=== PATIENT | male | born 2000 | race Hispanic/Latino ===

== ENCOUNTER 2019-07-23 09:15 | Observation (INO) | payer OTHER, SELFPAY ==
[2019-07-23] MEDS ORDERED: DICYCLOMINE HCL 10 MG CAP ONE (10:22)
[2019-07-23] MEDS ORDERED: NA CHLORIDE 0.9% 1,000 ML ONE ×2 (10:22→15:24)
[2019-07-23] MEDS ORDERED: ONDANSETRON 4 MG/2 ML VIAL ONE ×3 (10:22→14:26)
[2019-07-23] MEDS ORDERED: FAMOTIDINE 20 MG/2 ML VIAL IV ONE (10:23)
[2019-07-23 10:43] LABS: Basophils % 0.4 % (0-1.3); Lymphocytes % 5.5 % (15.3-44.8); MPV 9.9 fL (7.6-11.3); RBC Red Blood Cell Count 5.26 M/uL (4.33-5.43)
[2019-07-23 11:01] LABS: Albumin 4.3 g/dL (3.4-5.0); Bilirubin Direct 0.2 mg/dL (0-0.2); Bilirubin Total 0.9 mg/dL (0.2-1.0); Potassium 3.7 mmol/L (3.5-5.1); Protein, Total 8.2 g/dL (6.4-8.2)
[2019-07-23] MEDS ORDERED: PROMETHAZINE 25 MG/ML VIAL ONE (11:10)
--- NOTE | 2019-07-23 12:38 | RAD REPORT ---
EXAM DESCRIPTION: CTAbdomen Pelvis W Contrast - 07/23/2019 12:26 pm CLINICAL HISTORY: Abdominal pain. ABD PAIN COMPARISON: <Comparisons> TECHNIQUE: Biphasic CT imaging of the abdomen and pelvis was performed with 100 ml non-ionic IV cont rast. All CT scans are performed using dose optimization technique as appropriate and may include automated exposure control or mA/KV adjustment according to patient size. FINDINGS: The lung bases are clear. The liver, spleen, pancreas, adrenal glands and kidneys are within normal limits. No bowel obstruction, free air or abscess. Trace free fluid is seen in the pelvis. The appendix is no rmal. No evidence of significant lymphadenopathy. No suspicious bony findings. IMPRESSION: No acute intra-abdominal or pelvic finding.
[2019-07-23 12:59] LABS: Platelet Estimate ADEQ; Urine White Blood Cell Casts OK
[2019-07-23 13:00] LABS: Blood Morphology Comment NOT SEEN (NOT SEEN)
--- NOTE | 2019-07-23 14:22 | EDPHYS ---
Physician Documentation [facility] Name: Antony Byrnes Jr Age: 18 yrs Sex: Male : 2000 Arrival Date: 07/23/2019 Time: 09:17 Bed 24 Private MD: ED Physician Phi Zavala HPI: 07/23 10:20 This 18 yrs old Male presents to ER via Wheelchair with complaints of cp Vomiting/Diarrhea. 10:20 The patient presents to the emergency department with nausea, with "dry heaves", cp vomiting, that is continuous, diarrhea, that is continuous, abdominal pain, of the umbilical area. 10:20 Onset: The symptoms/episode began/occurred this morning. cp 10:20 Possible causes: unknown. Associated signs and symptoms: Pertinent positives: abdominal cp pain, diarrhea, vomiting, Pertinent negatives: constipation, dysuria, fever, GI bleeding. Severity of symptoms: in the emergency department the symptoms are unchanged despite home interventions. Historical: - Allergies: 09:23 No Known Allergies; aa5 - PMHx: 09:23 None; aa5 - PSHx: 09:23 WRIST SURGERY; aa5 - Immunization history:: Adult Immunizations up to date. - Social history:: Smoking status: Patient uses tobacco products, denies chronic smoking, but will smoke occasionally, Patient uses street drugs, marijuana. - Ebola Screening: : No symptoms or risks identified at this time. ROS: 10:25 Constitutional: Positive for poor PO intake, Negative for body aches, chills, fever. cp 10:25 Eyes: Negative for injury, pain, redness, and discharge. cp 10:25 ENT: Negative for drainage from ear(s), ear pain, sore throat, difficulty swallowing, difficulty handling secretions. 10:25 Cardiovascular: Negative for chest pain, palpitations. 10:25 Respiratory: Negative for cough, shortness of breath, wheezing. 10:25 Abdomen/GI: Positive for abdominal pain, nausea, vomiting, and diarrhea, anorexia, Negative for constipation, hematemesis, black/tarry stool, rectal bleeding. 10:25 : Negative for urinary symptoms, testicular pain 10:25 Skin: Negative for rash. 10:25 Neuro: Negative for altered mental status, headache, weakness. 10:25 All other systems are negative. Exam: 10:35 Constitutional: The patient appears in no acute distress, alert, awake, non-toxic, well cp developed, well nourished. 10:35 Head/Face: Normocephalic, atraumatic. cp 10:35 Eyes: Periorbital structures: appear normal, Conjunctiva: normal, no exudate, no injection, Sclera: no appreciated abnormality, Lids and lashes: appear normal, bilaterally. 10:35 ENT: External ear(s): are unremarkable, Nose: is normal, Mouth: Lips: moist, Oral mucosa: moist, Posterior pharynx: is normal, airway is patent, no erythema, no exudate. 10:35 Chest/axilla: Inspection: normal, Palpation: is normal, no crepitus, no tenderness. 10:35 Cardiovascular: Rate: normal, Rhythm: regular. 10:35 Respiratory: the patient does not display signs of respiratory distress, Respirations: normal, no use of accessory muscles, no retractions, no splinting, no tachypnea, labored breathing, is not present, Breath sounds: are clear throughout, no decreased breath sounds, no stridor, no wheezing. 10:35 Abdomen/GI: Inspection: abdomen appears normal, Bowel sounds: active, all quadrants, Palpation: soft, in all quadrants, moderate abdominal tenderness, in the umbilical area, rebound tenderness, is not appreciated, involuntary guarding, is not appreciated. Vital Signs: 09:23 BP 121 / 74; Pulse 70; Resp 18 S; Temp 97.9(O); Pulse Ox 100% on R/A; Weight 58.97 kg aa5 (R); Height 5 ft. 8 in. (172.72 cm) (R); Pain 7/10; 11:20 Temp 98.5(O); aa5 11:40 BP 107 / 52; Pulse 73; Resp 18 S; Pulse Ox 100% on R/A; Pain 5/10; aa5 12:59 BP 115 / 73; Pulse 60; Resp 16 S; Temp 99.1(O); Pulse Ox 97% on R/A; aa5 09:23 Body Mass Index 19.77 (58.97 kg, 172.72 cm) aa5 MDM: 10:13 Patient medically screened. cp 14:15 Data reviewed: vital signs, nurses notes, lab test result(s), radiologic studies, CT cp scan. 14:15 Response to treatment: the patient's symptoms have mildly improved after treatment. cp 14:15 ED course: Patient continues to be intolerant of po fluids. 14:16 Physician consultation: Katty Nagel MD was called at 14:17, was contacted at 14:17, cp regarding admission, to the medical/surgical unit. patient's condition, and will see patient in ED. 07/23 10:18 Order name: Basic Metabolic Panel; Complete Time: 11:03 07/23 10:18 Order name: CBC with Diff; Complete Time: 13:02 07/23 13:03 Interpretation: Normal except: WBC 17.8; MCV 91.2; JOVANA% 88.9; LYM% 5.5; NEUT A 15.8. 07/23 10:18 Order name: Creatinine for Radiology; Complete Time: 11:03 07/23 10:18 Order name: Hepatic Function; Complete Time: 11:03 07/23 10:18 Order name: Lipase; Complete Time: 11:03 07/23 13:02 Order name: CBC Smear Scan; Complete Time: 13:02 EDCA 07/23 10:19 Order name: CT Abd/Pelvis - PO and IV Contrast 07/23 14:14 Order name: UDS 07/23 15:23 Order name: CT EDCA 07/23 15:38 Order name: Urine Dipstick--Ancillary (enter results) [facility] 07/23 15:47 Order name: Urine Dipstick-Ancillary [facility] 07/23 10:18 Order name: IV Saline Lock; Complete Time: 10:19 07/23 10:18 Order name: Labs collected and sent; Complete Time: 10:19 07/23 13:32 Order name: PO challenge; Complete Time: 14:13 cp 07/23 15:37 Order name: Urine Dipstick-Ancillary (obtain specimen); Complete Time: 15:37 cp Administered Medications: 10:23 Drug: Zofran 4 mg Route: IVP; Site: right antecubital; aa5 10:30 Follow up: Response: No adverse reaction aa5 10:23 Drug: Pepcid 20 mg Route: IVP; Site: right antecubital; aa5 10:30 Follow up: Response: No adverse reaction aa5 10:23 Drug: NS 0.9% 1000 ml Route: IV; Rate: 1 bolus; Site: right antecubital; aa5 11:08 Follow up: IV Status: Completed infusion; IV Intake: 1000ml aa5 10:29 Drug: Bentyl 20 mg Route: PO; aa5 13:00 Follow up: Response: No adverse reaction iw 10:45 Drug: Zofran 4 mg Route: IVP; Site: right antecubital; aa5 10:50 Follow up: Response: No adverse reaction aa5 11:08 Drug: Phenergan 25 mg Route: IVP; Site: right antecubital; aa5 13:45 Follow up: Response: No adverse reaction; Nausea unchanged iw 14:26 Drug: NS 0.9% 1000 ml Route: IV; Rate: 1 bolus; Site: right antecubital; iw 14:27 Drug: Zofran 4 mg Route: IVP; Site: right antecubital; iw 15:29 Drug: NS 0.9% 1000 ml Route: IV; Rate: 100 ml/hr; Site: right antecubital; iw Disposition: 17:37 Co-signature as Attending Physician, Phi Zavala MD. rn Disposition: 07/23/19 14:20 Hospitalization ordered by Katty Nagel for Observation. Preliminary diagnosis are Nausea and vomiting - intractable, Diarrhea, unspecified. - Bed requested for Telemetry/MedSurg (observation). - Status is Observation. iw - Condition is Stable. - Problem is new. - Symptoms have improved. UTI on Admission? No Signatures: Dispatcher [employer] Capri Silva RN RN Phi Zavala MD MD rn Calderon, Audri, RN RN aa5 Marshall Rojas PA PA cp Herrera, Deanna 3 Corrections: (The following items were deleted from the chart) 12:52 12:36 Constitutional: The patient appears in no acute distress, alert, awake, cp non-diaphoretic, non-toxic, well developed, well nourished, unkempt, cp 12:52 12:36 Head/Face: Normocephalic, atraumatic. cp cp 12:52 12:36 Eyes: Periorbital structures: appear normal, Pupils: equal, round, and reactive cp to light and accomodation, Extraocular movements: intact throughout, Conjunctiva: normal, no exudate, no injection, Sclera: no appreciated abnormality, Lids and lashes: appear normal, bilaterally, cp 12:52 12:36 ENT: External ear(s): are unremarkable, Ear canal(s): are normal, clear, TM's: cp dullness, bilaterally, Nose: is normal, Mouth: Lips: dry, Oral mucosa: dry, Posterior pharynx: Airway: no evidence of obstruction, patent, erythema, is not appreciated, exudate, is not appreciated, Voice: is normal, cp 12:52 12:36 Neck: ROM/movement: is normal, is supple, without pain, no range of motions cp limitations, no meningismus, no nuchal rigidity, cp 12:52 12:36 Chest/axilla: Inspection: normal, Palpation: is normal, no crepitus, no cp tenderness, cp 12:52 12:36 Cardiovascular: Rate: normal, Rhythm: irregularly irregular, Edema: is not cp appreciated, JVD: is not appreciated, cp 12:52 12:36 Respiratory: the patient does not display signs of respiratory distress, cp Respirations: normal, no use of accessory muscles, no retractions, no splinting, no tachypnea, labored breathing, is not present, Breath sounds: are clear throughout, no decreased breath sounds, no stridor, no wheezing, cp 12:52 12:36 Abdomen/GI: Inspection: abdomen appears normal, Bowel sounds: active, all cp quadrants, Palpation: abdomen is soft and non-tender, in all quadrants, cp 12:52 12:36 Back: pain, is absent, ROM is normal, cp cp 12:52 12:36 Musculoskeletal/extremity: Exam is negative for deformity, cp cp 12:52 12:36 Skin: cellulitis, that is moderate, on the left leg, noted multiple open wounds cp left foot. cp 12:52 12:36 Neuro: Orientation: to person, place \\T\\ time. Mentation: is normal, Cerebellar cp function: Romberg testing is negative, normal finger to nose testing, Motor: moves all fours, general weakness without focal deficits, Sensation: no obvious gross deficits, cp 16:12 14:20 Hospitalization Ordered by Katty Nagel MD for Observation. Preliminary diagnosis dh3 is Nausea and vomiting - intractable; Diarrhea, unspecified. Bed requested for Telemetry/MedSurg (observation). Status is Observation. Condition is Stable. Problem is new. Symptoms have improved. UTI on Admission? No. cp 16:38 16:12 07/23/2019 14:20 Hospitalization Ordered by Katty Nagel MD for Observation. iw Preliminary diagnosis is Nausea and vomiting - intractable; Diarrhea, unspecified. Bed requested for Telemetry/MedSurg (observation). Status is Observation. Condition is Stable. Problem is new. Symptoms have improved. UTI on Admission? No. dh3
--- NOTE | 2019-07-23 14:22 | ER ---
Nurse's Notes [facility] Name: Antony Byrnes Jr Age: 18 yrs Sex: Male : 2000 Arrival Date: 07/23/2019 Time: 09:17 Bed 24 Private MD: Diagnosis: Nausea and vomiting-intractable;Diarrhea, unspecified Presentation: 07/23 09:22 Presenting complaint: Patient states: Nausea/vomiting/diarrhea and lower abd pain since aa5 0600 today. Transition of care: patient was not received from another setting of care. Onset of symptoms was July 23, 2019. Risk Assessment: Do you want to hurt yourself or someone else? Patient reports no desire to harm self or others. Initial Sepsis Screen: Does the patient meet any 2 criteria? No. Patient's initial sepsis screen is negative. Does the patient have a suspected source of infection? No. Patient's initial sepsis screen is negative. Care prior to arrival: None. 09:22 Acuity: CORINA 3 aa5 09:22 Method Of Arrival: Wheelchair aa5 Historical: - Allergies: 09:23 No Known Allergies; aa5 - PMHx: 09:23 None; aa5 - PSHx: 09:23 WRIST SURGERY; aa5 - Immunization history:: Adult Immunizations up to date. - Social history:: Smoking status: Patient uses tobacco products, denies chronic smoking, but will smoke occasionally, Patient uses street drugs, marijuana. - Ebola Screening: : No symptoms or risks identified at this time. Screenin:55 Abuse screen: Denies threats or abuse. Nutritional screening: No deficits noted. tw2 Tuberculosis screening: No symptoms or risk factors identified. Fall Risk None identified. Assessment: 10:05 General: Appears uncomfortable, Behavior is calm, cooperative. Pain: Complains of pain aa5 in right lower quadrant and left lower quadrant Pain does not radiate. Pain currently is 7 out of 10 on a pain scale. Quality of pain is described as crampy, sharp, Pain began this morning Is continuous. Neuro: Level of Consciousness is awake, alert, obeys commands, Oriented to person, place, time, situation. Cardiovascular: Heart tones S1 S2 present Rhythm is regular. Respiratory: Airway is patent Respiratory effort is even, unlabored, Respiratory pattern is regular, symmetrical, Breath sounds are clear bilaterally. GI: Abdomen is flat, non-distended, Bowel sounds present X 4 quads. Abd is soft and non tender X 4 quads. Reports diarrhea, nausea, vomiting. : No signs and/or symptoms were reported regarding the genitourinary system. EENT: No signs and/or symptoms were reported regarding the EENT system. Derm: Skin is dry, Skin is normal, Skin temperature is warm. Musculoskeletal: Range of motion: intact in all extremities. 10:23 Reassessment: Patient is alert, oriented x 3, equal unlabored respirations, skin aa5 warm/dry/pink. Pt vomited bile 100cc noted in emesis bag. . 11:08 Reassessment: Patient is alert, oriented x 3, equal unlabored respirations, skin aa5 warm/dry/pink. Pt reports he vomited, bile noted in emesis bag 100cc. . 11:40 Reassessment: Patient is alert, oriented x 3, equal unlabored respirations, skin aa5 warm/dry/pink. Patient states feeling better. Pt reports nausea has improved. . 11:46 Reassessment: Pt attempting to drink CT oral contrast again. . aa5 12:00 Reassessment: Patient is alert, oriented x 3, equal unlabored respirations, skin aa5 warm/dry/pink. Pt unable to drink CT oral contrast, PA was notified. . 13:47 Reassessment: family reports pt vomited once prior to PO challenge, vomited approx 30 iw mL clear liquid, pt now attempted to take one small sip of apple juice. 15:29 Reassessment: pt vomited approx 20 mL green bile. iw Vital Signs: 09:23 BP 121 / 74; Pulse 70; Resp 18 S; Temp 97.9(O); Pulse Ox 100% on R/A; Weight 58.97 kg aa5 (R); Height 5 ft. 8 in. (172.72 cm) (R); Pain 7/10; 11:20 Temp 98.5(O); aa5 11:40 BP 107 / 52; Pulse 73; Resp 18 S; Pulse Ox 100% on R/A; Pain 5/10; aa5 12:59 BP 115 / 73; Pulse 60; Resp 16 S; Temp 99.1(O); Pulse Ox 97% on R/A; aa5 09:23 Body Mass Index 19.77 (58.97 kg, 172.72 cm) aa5 ED Course: 09:17 Patient arrived in ED. mr 09:22 Arm band placed on. aa5 09:23 Triage completed. aa5 10:05 Bed in low position. Call light in reach. Pulse ox on. NIBP on. tw2 10:06 Verito De La Torre RN is Primary Nurse. aa5 10:12 Marshall Rojas PA is PHCP. cp 10:12 Phi Zavala MD is Attending Physician. cp 10:20 Initial lab(s) drawn, by me, sent to lab. Inserted saline lock: 20 gauge in right aa5 antecubital area, using aseptic technique. Blood collected. 13:00 Report given to KAYLA Farooq. aa5 14:20 Katty Nagel MD is Hospitalizing Provider. cp Administered Medications: 10:23 Drug: Zofran 4 mg Route: IVP; Site: right antecubital; aa5 10:30 Follow up: Response: No adverse reaction aa5 10:23 Drug: Pepcid 20 mg Route: IVP; Site: right antecubital; aa5 10:30 Follow up: Response: No adverse reaction aa5 10:23 Drug: NS 0.9% 1000 ml Route: IV; Rate: 1 bolus; Site: right antecubital; aa5 11:08 Follow up: IV Status: Completed infusion; IV Intake: 1000ml aa5 10:29 Drug: Bentyl 20 mg Route: PO; aa5 13:00 Follow up: Response: No adverse reaction iw 10:45 Drug: Zofran 4 mg Route: IVP; Site: right antecubital; aa5 10:50 Follow up: Response: No adverse reaction aa5 11:08 Drug: Phenergan 25 mg Route: IVP; Site: right antecubital; aa5 13:45 Follow up: Response: No adverse reaction; Nausea unchanged iw 14:26 Drug: NS 0.9% 1000 ml Route: IV; Rate: 1 bolus; Site: right antecubital; iw 14:27 Drug: Zofran 4 mg Route: IVP; Site: right antecubital; iw 15:29 Drug: NS 0.9% 1000 ml Route: IV; Rate: 100 ml/hr; Site: right antecubital; iw Intake: 11:08 IV: 1000ml; Total: 1000ml. aa5 Outcome: 14:20 Decision to Hospitalize by Provider. cp 16:38 Patient left the ED. iw Signatures: Joanne Sumner Irene, RN RN iw Verito De La Torre, RN RN aa5 Marshall Rojas PA PA cp Wise, Tara RN RN tw2
[2019-07-23 15:46] LABS: Urine Blood NEGATIVE (NEG); Urine Glucose NEGATIVE (NEG); Urine Protein NEGATIVE (NEG); Urine Specific Gravity 1.015 (1.005-1.030); Urine pH 7.5 (5.0-7.0)
[2019-07-23 15:52] LABS: Barbiturates NEGATIVE (NEGATIVE); Benzodiazepines NEGATIVE (NEGATIVE); Cocaine NEGATIVE (NEGATIVE); METHAMPHETAM NEGATIVE (NEGATIVE); Methadone NEGATIVE (NEGATIVE); Opiates NEGATIVE (NEGATIVE); Phencyclidine NEGATIVE (NEGATIVE); THC Cannibis POSITIVE (NEGATIVE)
[2019-07-23] MEDS ORDERED: ONDANSETRON 4 MG/2 ML VIAL IV PRN (16:51)
[2019-07-23] MEDS ORDERED: ACETAMINOPHEN 500 MG TAB PO PRN (16:51)
[2019-07-23] MEDS ORDERED: PROMETHAZINE 25 MG/ML VIAL IV PRN (16:51)
[2019-07-23 17:36] LABS: Urine Appearance CLEAR; Urine Bilirubin NEGATIVE (NEG); Urine Color YELLOW; Urine Glucose NEGATIVE (NEG); Urine Specific Gravity >=1.030 (1.005-1.030)
[2019-07-23 17:37] LABS: Urine Blood NEGATIVE (NEG); Urine Protein NEGATIVE (NEG); Urine Urobilinogen 0.2 mg/dL (0.2-1.0)
[2019-07-23] MEDS: D5.45NS W/KCL 20MEQ 1,000 ML IV SCH (17:52)
[2019-07-23] MEDS: ENOXAPARIN 40 MG/0.4 ML SQ SCH (17:53)
[2019-07-23 18:32] LABS: Urine Bacteria <20 /HPF (NONE SEEN); Urine Culture Reflex Order NOT NEEDED; Urine RBC <5 /HPF (NONE SEEN)
[2019-07-24] MEDS: D5.45NS W/KCL 20MEQ 1,000 ML IV SCH ×2 (00:39→08:51)
--- NOTE | 2019-07-24 01:52 | HP ---
Date of Admission: 07/23/2019 Chief Complaint: Abdominal pain, intractable nausea, vomiting. History Of Present Illness: The patient is a 18-year-old male with no significant past medical histo ry, who was in his usual state of health until last night when he reports nausea, woke up this mornin g with multiple episodes of vomiting and diarrhea, which was loose stool. There was no blood in his stool. Patient denies any ill contact. No recent travel outside the country or use of well water. No pet turtles. Patient denies any fevers or chills. His symptoms were constant, moderate, progress ively worsening. Therefore, he came into the ER for further evaluation. Upon arrival, his vital sig ns were stable. He was afebrile. His workup revealed a white count of 18,000. CT scan was negative for appendicitis. Patient was given multiple rounds of Zofran and Phenergan and oral challenge; how ever, he failed p.o. challenge, had continued pain and vomiting, therefore was referred for admission . When seen in the ER, he was awake, alert, oriented x3, in mild distress. Past Medical History: None. Past Surgical History: Wrist surgery for trauma. Allergies: NO KNOWN DRUG ALLERGIES. Medications: None. Social History: The patient smokes cigarettes occasionally. No alcohol use. Patient does smoke mar ijuana on almost semi-daily basis. Last time he smoked was last night. Denies any IV drug use. Adrienne worley has a girlfriend, sexually active. Lives with his parents. Family History: Father has diabetes. Review of Systems: Ten-point system reviewed, negative except as per HPI. Physical Examination: Vital Signs: Blood pressure 121/74, pulse 70, respirations 18, temperature 97.9, O2 of 100% on room air. General: Awake, alert, oriented x3. Some mild distress, ill-appearing male. HEENT: Normocephalic, atraumatic. PERRLA. EOMI. Dry mucous membranes. Oropharynx is clear. Norm al dentition. Conjunctiva is anicteric. Neck: Supple. No JVD. Trachea midline. CV: S1, S2. Regular rate and rhythm. Peripheral pulses present. Respiratory: Clear to auscultation bilaterally. No wheezing or stridor. No use of accessory muscle s. Gastrointestinal: Abdomen is soft. Tenderness to palpation in the epigastric region. No rebound or guarding. No rigidity. Positive bowel sounds. No hepatosplenomegaly. Extremities: No clubbing, cyanosis, or edema. No calf tenderness. Neuro: Cranial nerves 2 through 12 intact grossly. No focal neurological deficit. Speech is normal . Skin: No rashes. Normal skin turgor. Psych: Mood is okay. Affect is full. Insight and judgment are good. Laboratory Data: Sodium 140, potassium 3.7, chloride 107, CO2 of 22, BUN 14, creatinine 1.23, glucos e 137, calcium 9.4, lipase 57. WBC 17.8, H and H 16 and 48, platelets 206. UA and UDS are pending. CT scan of the abdomen and pelvis with contrast shows no acute intraabdominal or pelvic finding. Assessment: A 18-year-old male with: 1.Acute epigastric abdominal pain, unclear etiology. CT scan is negative, likely related to either viral versus bacterial gastroenteritis. We will obtain stool studies including stool culture, ova, p arasites, Clostridium difficile and fecal leukocyte stain. Patient denies any recent antibiotic use. Differential diagnosis includes cyclical vomiting syndrome from marijuana. 2.Intractable nausea, vomiting, likely due to cyclical vomiting syndrome from marijuana. Patient alberts s been counseled. We will consult GI. Rule out other organic causes. We will continue with antieme tics with Zofran and Phenergan for breakthrough. Continue n.p.o. We will start on clear liquids in a .m. if symptoms improved. 3.Hyperglycemia, likely acute phase reactant. No history of diabetes. Patient does not have metabo lic syndrome or obesity. 4.Neutrophilic leukocytosis likely related to above. No signs of sepsis. Patient is not tachycardi c or tachypneic. Plan: Admit the patient to Med-Surg, place as observation. /JIMENA Voice ID: [id number]
[2019-07-24 04:18] LABS: Absolute Lymphocytes (CBC) 1.6 K/uL (0.7-4.9); Basophils % 0.2 % (0-1.3); Hematocrit 43.3 % (39.6-49.0); Lymphocytes % 12.9 % (15.3-44.8); MPV 9.9 fL (7.6-11.3); RBC Red Blood Cell Count 4.73 M/uL (4.33-5.43)
[2019-07-24 04:28] LABS: ALT/SGPT 14 U/L (12-78); AST/SGOT 12 U/L (15-37); Albumin 3.2 g/dL (3.4-5.0); Alkaline Phosphatase 67 U/L (45-117); BUN Blood Urea Nitrogen 9 mg/dL (7-18); Bicarbonate 27 mmol/L (21-32); Bilirubin Total 0.6 mg/dL (0.2-1.0); Glucose Level 91 mg/dL (74-106); Magnesium 1.9 mg/dL (1.8-2.4); Phosphorus 3.1 mg/dL (2.5-4.9); Protein, Total 6.5 g/dL (6.4-8.2); Sodium Level 143 mmol/L (136-145)
[2019-07-24 08:44] VITALS: BP 107/55; TEMP 97.1
[2019-07-24] MEDS: ENOXAPARIN 40 MG/0.4 ML SQ SCH (09:00)
[2019-07-24 09:09] VITALS: O2SAT 97
--- NOTE | 2019-07-25 06:21 | DS ---
Date of Discharge: 07/24/2019 Consultants: Dr. Corrigan with GI Procedures: None. Discharge Diagnoses: 1.Acute epigastric abdominal pain. 2.Intractable nausea and vomiting. 3.Hyperglycemia. 4.Neutrophilic leukocytosis. 5.Marijuana abuse. Hospital Course: The patient is a 18-year-old male with no past medical history comes in with intrac table nausea, vomiting, epigastric abdominal pain, and diarrhea. The patient had a white count of 18 ,000. He did admit to smoking marijuana. The patient was thought to have cyclical vomiting syndrome . Did not seem to have infectious etiology of his symptoms. Stool studies were ordered, however, chu solorzano did not have any further nausea, vomiting, or diarrhea. The patient was seen by Dr. Meenu lin GI. UDS was positive for THC. The patient was counseled regarding marijuana use. He understand s that this can cause cyclic vomiting syndrome in addition to several other complications including l az disease, cancer, and addiction. The patient voiced understanding. The patient's white count imp roved. His condition improved significantly. He was able to tolerate GI soft diet, did not have any further symptoms. The patient was then cleared for discharge from GI standpoint and was sent home i n a stable condition. Activity: As tolerated. Medications: As per medication reconciliation list. Follow Up: With GI, Dr. Corrigan in 2 weeks. Return to ER for worsening condition. Diet: [place]. Physical Examination: General: Awake, alert, and oriented x3. No acute distress. CV: S1, S2. No murmurs. Respiratory: Moving air well bilaterally. No wheezing. Gastrointestinal: Abdomen is soft, nontender, and nondistended. Positive bowel sounds. Extremities: No clubbing, cyanosis, or edema. Neurologic: Nonfocal. SA/MODL Voice ID: [id number] Report ID: [id number]
== END 2019-07-24 10:45 | disposition home or self-care (01) ==
LOC: ER 09:15 → ERHOLD 14:48 → 4TH 16:32
PROVIDERS: ADMIT Family Medicine; ATTEND Family Medicine
DX: R10.13 Epigastric pain (principal); K31.89 Other diseases of stomach and duodenum; R11.2 Nausea with vomiting, unspecified; R73.9 Hyperglycemia, unspecified; F17.210 Nicotine dependence, cigarettes, uncomplicated
CPT/HCPCS: 36415; 74177; 80048; 80053; 80076; 80307; 81001; 81003; 83690; 83735; 84100; 85025; 94760; 96361; 96374; 96375; 99284; G0378; J1650; J2405; J2550; J7030; Q9967

== ENCOUNTER 2020-02-14 12:47 | Emergency (ER) | payer SELFPAY ==
[2020-02-14] MEDS ORDERED: LIDOCAINE 1% MPF 5 ML VIAL ONE (13:28)
[2020-02-14] MEDS ORDERED: TETANUS & DIPHTHERIA TOX,ADULT 0.5 ML VIAL ONE (13:34)
--- NOTE | 2020-02-14 13:59 | RAD REPORT ---
EXAM DESCRIPTION: RAD - Hand Right 3 View - 02/14/2020 1:40 pm CLINICAL HISTORY: Laceration COMPARISON: No comparisons FINDINGS: No fracture or radiopaque foreign body identified.
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
--- NOTE | 2020-02-14 14:22 | EDPHYS ---
Physician Documentation [facility] Name: Antony Byrnes Jr Age: 19 yrs Sex: Male : 2000 Arrival Date: 02/14/2020 Time: 12:49 Bed 8 Private MD: ED Physician Marshall Peck HPI: 02/13 13:03 This 19 yrs old Male presents to ER via Unassigned with complaints of Hand pm1 Injury. 13:03 The patient or guardian reports a laceration. The complaints affect the palmar aspect pm1 of proximal phalanx of right thumb, palm of right hand and outer aspect of right palm. Context: The problem was sustained at home, resulted from broke glass while opening the window. Onset: The symptoms/episode began/occurred just prior to arrival. Modifying factors: The symptoms are alleviated by pressure to area, the symptoms are aggravated by nothing. Associated signs and symptoms: Pertinent negatives: cyanosis distally, decreased sensation distally, numbness distally, tingling distally. Severity of symptoms: in the emergency department the symptoms have improved. Historical: - Allergies: 13:17 No Known Allergies; ss - Home Meds: 13:17 None [Active]; ss - PMHx: 13:17 None; ss - PSHx: 13:17 WRIST SURGERY; ss - Immunization history:: Adult Immunizations up to date. - Social history:: Smoking status: Patient denies any tobacco usage or history of. Patient uses street drugs, marijuana. ROS: 13:07 Constitutional: Negative for fever, chills, and weight loss, Cardiovascular: Negative pm1 for chest pain, palpitations, and edema, Respiratory: Negative for shortness of breath, cough, wheezing, and pleuritic chest pain, Abdomen/GI: Negative for abdominal pain, nausea, vomiting, diarrhea, and constipation, MS/Extremity: Negative for injury and deformity. 13:07 Skin: Positive for laceration(s), of the outer aspect of right palm and palm of right hand and palmar aspect of proximal phalanx of right thumb. 13:07 All other systems are negative. Exam: 13:07 Constitutional: This is a well developed, well nourished patient who is awake, alert, pm1 and in no acute distress. Chest/axilla: Normal chest wall appearance and motion. Nontender with no deformity. No lesions are appreciated. Cardiovascular: Regular rate and rhythm with a normal S1 and S2. No gallops, murmurs, or rubs. Normal PMI, no JVD. No pulse deficits. Respiratory: Lungs have equal breath sounds bilaterally, clear to auscultation and percussion. No rales, rhonchi or wheezes noted. No increased work of breathing, no retractions or nasal flaring. Back: No spinal tenderness. No costovertebral tenderness. Full range of motion. 13:07 MS/ Extremity: Pulses equal, no cyanosis. Neurovascular intact. Full, normal range of motion. 13:07 Skin: Appearance: normal except for affected area, injury, laceration(s), the wound is approximately 4 cm(s), of the outer aspect of right palm and palm of right hand and palmar aspect of proximal phalanx of right thumb. 13:07 Neuro: Exam negative for acute changes, Orientation: is normal, Motor: is normal, moves all fours, Sensation: is normal, no obvious gross deficits. Vital Signs: 13:00 Temp 98.0(TE); aa5 13:14 BP 129 / 83; Pulse 94; Resp 16; Pulse Ox 97% on R/A; Weight 62.14 kg; Height 5 ft. 8 ss in. (172.72 cm); 13:14 Body Mass Index 20.83 (62.14 kg, 172.72 cm) ss Laceration: 14:17 Wound Repair of 4cm ( 1.6in ) subcutaneous laceration to outer aspect of right palm and pm1 palmar aspect of proximal phalanx of right thumb. Irregularly shaped.. Distal neuro/vascular/tendon intact. Anesthesia: Local anesthetic administered with 3 mls of 1% lidocaine. Wound prep: Extensive cleansing with betadine by nurse, Wound irrigation with saline by nurse, Wound explored extensively, Copious irrigation. Skin closed with 10 4-0 Prolene using simple sutures and sterile technique. Dressed with Neosporin, 4x4's. Patient tolerated well. MDM: 12:56 Patient medically screened. [facility] 13:06 ED course: Patient refused tetanus shot. Told him it should be current within 5 years. pm1 Reports he got the immunization at 14. Recommended tetanus shot because that was 5 years ago but he still refused. 14:17 Data reviewed: vital signs. Data interpreted: Pulse oximetry: on room air is 97 %. pm1 Interpretation: normal. Counseling: I had a detailed discussion with the patient and/or guardian regarding: the historical points, exam findings, and any diagnostic results supporting the discharge/admit diagnosis, radiology results, the need for outpatient follow up, a family practitioner, suture removal in 10-14 days, to return to the emergency department if symptoms worsen or persist or if there are any questions or concerns that arise at home. 02/13 13:02 Order name: Hand Right 3 View XRAY; Complete Time: 14:17 pm1 02/13 13:02 Order name: Prolene, Sutures; Complete Time: 13:20 pm1 02/13 13:02 Order name: Dressing - Wound; Complete Time: 14:48 pm1 02/13 13:02 Order name: Gloves, Sterile; Complete Time: 13:21 pm1 02/13 13:02 Order name: Setup Suture Tray; Complete Time: 13:21 pm1 02/13 14:16 Order name: Splint - Finger; Complete Time: 14:48 pm1 Administered Medications: 13:36 Drug: Tetanus-Diphtheria Toxoid Adult 0.5 ml {Contour Grinder: [employer]. Exp: aa5 04/24/2021. Lot #: [id number]. } Route: IM; Site: left deltoid; 14:55 Follow up: Response: No adverse reaction aa5 14:00 Drug: Lidocaine (1 %) 5 ml {Note: administered by SAFETY OFFICER during laceration repair .} aa5 Volume: 5 ml; Route: Infiltration; Disposition: 02/14 13:53 Co-signature as Attending Physician, Marshall Peck MD I agree with the assessment and vishal plan of care. Disposition: 02/14/20 14:20 Discharged to Home. Impression: Laceration without foreign body of right hand. - Condition is Stable. - Discharge Instructions: Laceration Care, Adult. - Prescriptions for Keflex 500 mg Oral Capsule - take 1 capsule by ORAL route every 12 hours for 10 days; 20 capsule. - Medication Reconciliation Form, Thank You Letter, Antibiotic Education, Prescription Opioid Use form. - Follow up: Emergency Department; When: As needed; Reason: Worsening of condition. Follow up: Private Physician; When: 10 - 14 days; Reason: Wound Recheck, Recheck today's complaints, Continuance of care, Staple/Suture removal, Re-evaluation by your physician. - Problem is new. - Symptoms have improved. Signatures: Dispatcher [employer] EDMS Marshall Peck MD MD cha Calderon, Audri, RN RN aa5 Priya Pantoja RN RN ss Rian Juares, YESSI SAFETY OFFICER pm1 Corrections: (The following items were deleted from the chart) 02/13 14:55 14:20 02/14/2020 14:20 Discharged to Home. Impression: Laceration without foreign body aa5 of right hand. Condition is Stable. Forms are Medication Reconciliation Form, Thank You Letter, Antibiotic Education, Prescription Opioid Use. Follow up: Emergency Department; When: As needed; Reason: Worsening of condition. Follow up: Private Physician; When: 10 - 14 days; Reason: Wound Recheck, Recheck today's complaints, Continuance of care, Staple/Suture removal, Re-evaluation by your physician. Problem is new. Symptoms have improved. pm1
[2020-02-14 15:33] VITALS: TEMP 98
[2020-02-14 15:35] VITALS: BP 129/83; O2SAT 97
== END 2020-02-14 14:55 | disposition home or self-care (01) ==
LOC: ER 12:47
PROC: 0JQJ0ZZ Repair Right Hand Subcutaneous Tissue and Fascia, Open Approach (ICD-10-PCS; principal; 2020-02-14)
DX: S61.411A Laceration without foreign body of right hand, initial encounter (principal); W25.XXXA Contact with sharp glass, initial encounter; Y93.89 Activity, other specified; Y92.009 Unspecified place in unspecified non-institutional (private) residence as the place of occurrence of the external cause
CPT/HCPCS: 90471; 90714; 99284

== ENCOUNTER 2022-09-07 15:49 | Emergency (ER) | payer SELFPAY ==
[2022-09-07] MEDS ORDERED: LIDOCAINE 2% MPF 5 ML VIAL ONE (17:52)
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
== END 2022-09-07 19:19 | disposition home or self-care (01) ==
LOC: ER 15:49
PROC: 0JQK0ZZ Repair Left Hand Subcutaneous Tissue and Fascia, Open Approach (ICD-10-PCS; principal; 2022-09-07)
PROC: 0JQJ0ZZ Repair Right Hand Subcutaneous Tissue and Fascia, Open Approach (ICD-10-PCS; 2022-09-07)
DX: S61.412A Laceration without foreign body of left hand, initial encounter (principal); S61.411A Laceration without foreign body of right hand, initial encounter; Z72.0 Tobacco use
CPT/HCPCS: 99284; J2001

== ENCOUNTER 2024-02-24 21:28 | Inpatient (IN) | payer SELFPAY ==
[2024-02-24] MEDS ORDERED: NA CHLORIDE 0.9% 1,000 ML ONE (22:21)
[2024-02-24] MEDS ORDERED: IBUPROFEN 400 MG TAB ONE (22:21)
--- NOTE | 2024-02-24 22:30 | RAD REPORT ---
EXAM DESCRIPTION: RAD - Elbow Right 3 View - 02/24/2024 10:23 pm CLINICAL HISTORY: PAIN COMPARISON: No comparisons FINDINGS/IMPRESSION: No acute fracture. No malalignment. No significant focal degenerative changes. Soft tissue prominence along the olecranon.
[2024-02-24 23:32] LABS: Absolute Basophils 0.1 K/uL (0-0.5); Absolute Lymphocytes (CBC) 1.4 K/uL (0.7-4.9); Absolute Monocytes 1.5 K/uL (0.1-1.3); Absolute Neutrophil 15.1 K/uL (1.8-8.0); Basophils % 0.3 % (0-1.3); Eosinophils % 0.1 % (0-4.4); Hematocrit 46.2 % (39.6-49.0); Hemoglobin 15.5 g/dL (13.6-17.9); Lymphocytes % 7.6 % (15.3-44.8); MCH 31.1 pg (27.0-35.0); MCHC 33.6 g/dL (32.0-36.0); MCV 92.7 fL (80-100); MPV 9.2 fL (7.6-11.3); Monocytes % 8.4 % (3.3-12.3); Neutrophils % 83.6 % (41.7-73.7); Platelets 241 thou/uL (152-406); RBC Red Blood Cell Count 4.98 M/uL (4.33-5.43); Red Cell Distribution Width 13.2 % (12.1-15.2)
[2024-02-24 23:38] LABS: Anion Gap 7.7 mEq/L (5.0-15.0); C-Reactive Protein 36.8 mg/L (<3.00); Potassium 3.7 mEq/L (3.5-5.1)
[2024-02-25] MEDS ORDERED: ACETAMINOPHEN 500 MG TAB PO PRN (00:07)
--- NOTE | 2024-02-25 00:08 | P.HP ---
Certification for Inpatient Patient admitted to: Observation With expected LOS: <2 Midnights Practitioner: I am a practitioner with admitting privileges, knowledge of patient current condition, hospital course, and medical plan of care. Services: Services provided to patient in accordance with Admission requirements found in Title 42 Section 412.3 of the Code of Federal Regulations Patient History Date of Service: 02/25/24 Reason for admission: Elbow Pain History of Present Illness: 23 yo male with no significant past medical history who started having pain and swelling in right elbow which has been going on for the last 2 days that has been progressively worsening and was brought to ER. Patient had a fall and hit his elbow few days ago. He did not feel that much pain at the time. Denies any fever or chills. Patient started having pain and swelling of the right elbow associated with redness and was brought to ER as it was progressively getting worse. Denies any nausea vomiting or diarrhea. No sick contacts. Patient was assessed in the ER and was noted to have possible abscess of left elbow region and was admitted for IV antibiotic and orthopedic consultation. Allergies No Known Allergies Allergy (Verified 07/23/19 18:47) Home medications list reviewed: Yes Home Medications: NK [No Home Meds] 02/25/24 - Past Medical/Surgical History Diabetic: No Past Medical History: Reviewed- Non-Contributory Past Surgical History: Reviewed- Non-Contributory -: Right Wrist surgery - Family History Family History: Reviewed- Non-Contributory - Family History Mother Notes: none Father -: Hypertension, Diabetes - Social History Smoking Status: Never smoker Alcohol use: No CD- Drugs: Yes Caffeine use: Yes Review of Systems 10-point ROS is otherwise unremarkable Physical Examination - Vital Signs Temperature: 98.4 F Blood Pressure: 106/68 Pulse: 76 Respirations: 18 Pulse Ox (%): 98 - Physical Exam General: Alert, In no apparent distress, Oriented x3 HEENT: Atraumatic, Normocephalic Neck: Supple, 2+ carotid pulse no bruit Respiratory: Clear to auscultation bilaterally, Normal air movement Cardiovascular: Normal pulses, Regular rate/rhythm, Normal S1 S2, No gallops Capillary refill: <2 Seconds Gastrointestinal: Soft and benign, W/out hepatosplenomegaly, No ascites, No tenderness Musculoskeletal: No clubbing, Swelling, Erythema, Tenderness, Warmth, Other (Right Elbow erythema and swelling , tender to move ) Integumentary: Tenderness/swelling, Erythema, Warmth Neurological: Normal speech, Normal strength at 5/5 x4 extr, Sensation intact, Cranial nerves 3-12 intact, Normal reflexes 2+, Normal affect Lymphatics: No axilla or inguinal lymphadenopathy - Studies Laboratory Data (last 24 hrs) 02/24/24 02/24/24 22:31 22:31 WBC 18.10 H Hgb 15.5 Hct 46.2 Plt Count 241 Sodium 135 L Potassium 3.7 BUN 17 Creatinine 1.10 Glucose 101 Assessment and Plan - Problems (Diagnosis) (1) Abscess of right elbow Current Visit: Yes Status: Acute Plan: Pain control Started on IV antibiotics X-ray findings noted : No acute fracture. No malalignment. No significant focal degenerative changes. Soft tissue prominence along the olecranon. Orthopedic consulted CRP elevated Awaiting further clinical improvement (2) Hyponatremia Current Visit: Yes Status: Acute Plan: Minimal hyponatremia noted Electrolytes monitor replace accordingly (3) Leukocytosis Current Visit: Yes Status: Acute Plan: CBC monitored Will repeat CBC in a.m. Started on IV antibiotic Monitor closely Discharge Plan: Home Plan to discharge in: 24 Hours - Advance Directives Does patient have a Living Will: No Does patient have a Durable POA for Healthcare: No - Code Status/Comfort Care Code Status: Full Code Time Spent Managing Pts Care (In Minutes): 56
[2024-02-25] MEDS ORDERED: VANCOMYCIN 1 GM/VIAL ONE (00:11)
[2024-02-25] MEDS ORDERED: NA CHLORIDE 0.9% 250 ML ONE (00:12)
[2024-02-25] MEDS ORDERED: NA CHLORIDE 0.9% 100 ML ONE (00:12)
[2024-02-25] MEDS ORDERED: CEFEPIME 1 GM/VIAL ONE (00:12)
--- NOTE | 2024-02-25 00:12 | ER ---
Nurse's Notes [facility] Name: Antony Byrnes Jr Age: 23 yrs Sex: Male : 2000 Arrival Date: 02/24/2024 Time: 21:28 Bed 13 Private MD: Diagnosis: Other infective bursitis, right elbow Presentation: 02/23 21:49 Chief complaint: Patient states: I was skateboarding Sunday night, fell and hit right bm8 elbow. now its swollena dn hot to touch. Coronavirus screen: At this time, the client does not indicate any symptoms associated with coronavirus-19. Ebola Screen: Patient negative for fever greater than or equal to 101.5 degrees Fahrenheit, and additional compatible Ebola Virus Disease symptoms Patient denies exposure to infectious person. Patient denies travel to an Ebola-affected area in the 21 days before illness onset. No symptoms or risks identified at this time. Initial Sepsis Screen: Does the patient meet any 2 criteria? No. Patient's initial sepsis screen is negative. Does the patient have a suspected source of infection? No. Patient's initial sepsis screen is negative. Risk Assessment: Do you want to hurt yourself or someone else? Patient reports no desire to harm self or others. Onset of symptoms was February 22, 2024 at 22:00. 21:49 Method Of Arrival: Ambulatory bm8 21:49 Acuity: CORINA 3 bm8 Triage Assessment: 21:52 General: Appears in no apparent distress. comfortable, Behavior is calm, cooperative, bm8 appropriate for age. Pain: Complains of pain in right elbow Pain radiates to right arm Pain currently is 8 out of 10 on a pain scale. Quality of pain is described as sharp, shooting. EENT: No deficits noted. No signs and/or symptoms were reported regarding the EENT system. Neuro: Level of Consciousness is awake, alert, obeys commands, Oriented to person, place, time, situation, Appropriate for age. Cardiovascular: No deficits noted. Denies chest pain, shortness of breath, Capillary refill < 3 seconds Patient's skin is warm and dry. Respiratory: No deficits noted. Airway is patent Respiratory effort is even, unlabored, Respiratory pattern is regular, symmetrical. Musculoskeletal: Circulation, motion, and sensation intact. Capillary refill < 3 seconds, Range of motion: limited in right elbow Swelling present in right elbow. Injury Description: fall striking right elbow, area around right elbow is swollen red and hot to touch. Historical: - Allergies: 21:52 No Known Allergies; bm8 - Home Meds: 21:52 None [Active]; bm8 - PMHx: 21:52 None; bm8 - PSHx: 21:52 right wrist repair; bm8 - Immunization history:: Adult Immunizations up to date. - Infectious Disease History:: Denies. - Social history:: Smoking status: Patient denies any tobacco usage or history of. Patient uses marijuana. Screenin:15 [facility] ED Fall Risk Assessment (Adult) History of falling in the last 3 months, km8 including since admission Yes- single mechanical fall (1 pt) Confusion or Disorientation No (0 pts) Intoxicated or Sedated No (0 pts) Impaired Gait No (0 pts) Mobility Assist Device Used No (0 pt) Altered Elimination No (0 pt) Score/Fall Risk Level 0 - 2 = Low Risk Oriented to surroundings, Maintained a safe environment, Educated pt \T\ family on fall prevention, incl call for assistance when getting out of bed, Assessed \T\ reinforced patient's understanding of fall precautions. Abuse screen: Denies threats or abuse. Denies injuries from another. Nutritional screening: No deficits noted. Tuberculosis screening: No symptoms or risk factors identified. Assessment: 22:12 General: Appears in no apparent distress. comfortable, Behavior is calm, cooperative, km8 appropriate for age. Pain: Complains of pain in right elbow Pain currently is 8 out of 10 on a pain scale. Neuro: Level of Consciousness is awake, alert, obeys commands, Oriented to person, place, time, situation. Cardiovascular: Denies chest pain, shortness of breath, Patient's skin is warm and dry. Respiratory: Airway is patent Respiratory effort is even, unlabored, Respiratory pattern is regular, symmetrical. GI: No signs and/or symptoms were reported involving the gastrointestinal system. : No signs and/or symptoms were reported regarding the genitourinary system. EENT: No signs and/or symptoms were reported regarding the EENT system. Derm: Skin is healthy with good turgor, Skin is dry, Skin is red, Skin temperature is warm Wound noted right elbow Wound is redness, swelling, warm to touch. Musculoskeletal: Range of motion: limited in right elbow Reports pain in right elbow Pain is 8 out of 10 on a pain scale. 23:15 Reassessment: Patient appears in no apparent distress at this time. No changes from 8 previously documented assessment. Patient and/or family updated on plan of care and expected duration. Pain level reassessed. Patient is alert, oriented x 3, equal unlabored respirations, skin warm/dry/pink. 02/24 00:00 Reassessment: Patient appears in no apparent distress at this time. No changes from km8 previously documented assessment. Patient and/or family updated on plan of care and expected duration. Pain level reassessed. Patient is alert, oriented x 3, equal unlabored respirations, skin warm/dry/pink. 01:00 Reassessment: Patient appears in no apparent distress at this time. No changes from km8 previously documented assessment. Patient and/or family updated on plan of care and expected duration. Pain level reassessed. Patient is alert, oriented x 3, equal unlabored respirations, skin warm/dry/pink. Vital Signs: 02/23 21:49 BP 124 / 84; Pulse 85; Resp 18; Temp 100.6; Pulse Ox 100% ; Weight 63.5 kg; Height 5 bm8 ft. 9 in. ; Pain 8/10; 22:00 BP 139 / 58; Pulse 91; Resp 16; Pulse Ox 98% on R/A; km8 23:00 BP 125 / 74; Pulse 91; Resp 16; Pulse Ox 95% on R/A; km8 02/24 00:00 BP 105 / 62; Pulse 92; Resp 16; Temp 99.3(O); Pulse Ox 95% on R/A; km8 01:00 BP 117 / 61; Pulse 87; Resp 16; Pulse Ox 95% on R/A; km8 02/23 21:49 Body Mass Index 20.67 (63.50 kg, 175.26 cm) [facility] 02/23 21:49 Pain Scale: Adult bm8 Delmi Coma Score: 02/23 22:15 Eye Response: spontaneous(4). Motor Response: obeys commands(6). Verbal Response: km8 oriented(5). Total: 15. ED Course: 21:32 Patient arrived in ED. gm2 21:32 Marshall Rojas PA is PHCP. cp 21:33 Niko Ndiaye MD is Attending Physician. cp 21:52 Triage completed. 8 21:52 Arm band placed on left wrist. Patient placed in an exam room, on a stretcher. [facility] 22:12 Angeline Houser, KAYLA is Primary Nurse. 8 22:15 Patient has correct armband on for positive identification. Bed in low position. Call [facility] light in reach. Side rails up X 1. Pulse ox on. NIBP on. Lights dimmed. 22:24 XRAY Elbow RIGHT 3 view In Process Unspecified. EDMS 22:31 Initial lab(s) drawn, by vt, sent to lab. First set of blood cultures drawn by vt. [facility] Inserted saline lock: 20 gauge in left forearm, using aseptic technique. 22:33 Warm blanket given. [facility] 22:33 CRP Sent. [facility] 22:33 BMP Sent. [facility] 22:33 CBC with Diff Sent. [facility] 02/24 00:03 Second set of blood cultures drawn by vt. [facility] 00:09 Blood Culture Adult (2) Sent. [facility] 00:09 Lactate w/ 2H reflex if indic. Sent. [facility] 00:[address] MD is Hospitalizing Provider. 00:33 Provided Education on: admission process. [facility] 00:33 No provider procedures requiring assistance completed. Patient admitted, IV remains in [facility] place. Administered Medications: 02/23 22:33 Drug: Ibuprofen PO 800 mg PO once Route: PO; [facility] 02/24 00:09 Follow up: Response: No adverse reaction [facility] 02/23 22:33 Drug: NS 0.9% IV 1000 ml IV at 1 bolus Per protocol; 1000 mL bolus Route: IV; Rate: 1 [facility] bolus; Site: left forearm; 02/24 00:09 Follow up: IV Status: Completed infusion; IV Intake: 1000ml [facility] 00:18 Drug: Cefepime IVPB 1 grams IVPB at 200 ml/hr once over 30 mins; (mix in NS 100 mL) [facility] Route: IVPB; Rate: 200 ml/hr; Infused Over: 30 mins; Site: left forearm; 00:47 Follow up: IV Status: Completed infusion; IV Intake: 100ml [facility] 00:47 Drug: vancoMYCIN IVPB 1 grams IVPB once over 2 hrs Route: IVPB; Infused Over: 2 hrs; [facility] Site: left forearm; 01:45 Follow up: Response: No adverse reaction; Other; IV Status: Infusion continued bm8 Medication: 00:33 VIS not applicable for this client. km8 Intake: 00:09 IV: 1000ml; Total: 1000ml. km8 00:47 IV: 100ml; Total: 1100ml. km8 Outcome: 00:11 Decision to Hospitalize by Provider. cp 01:44 Admitted to Tele accompanied by nurse, via wheelchair, room 419, bm8 01:44 Condition: stable 01:44 Instructed on the need for admit, Demonstrated understanding of instructions, follow-up care, medications, 01:46 Patient left the ED. bm8 Signatures: Dispatcher [employer] EDMS Marshall Rojas PA PA cp Mariangel Barkley gm2 Angeline Houser RN RN km8 Berry Villela RN RN bm8 Corrections: (The following items were deleted from the chart) 00:45 00:00 BP 105 / 62; Pulse 72bpm; Resp 16bpm; Pulse Ox 95% RA; Temp 99.3F Oral; km8 km8
--- NOTE | 2024-02-25 00:12 | EDPHYS ---
Physician Documentation [facility] Name: Antony Byrnes Jr Age: 23 yrs Sex: Male : 2000 Arrival Date: 02/24/2024 Time: 21:28 Bed 13 Private MD: ED Physician Niko Ndiaye HPI: 02/23 22:30 This 23 yrs old Male presents to ER via Ambulatory with complaints of Arm cp Injury, Arm Pain, FELL AND HIT ELBOW ON CONCRETE. ELBOW HOT TO THE TOUCH. 22:30 The patient or guardian complains of injury, pain, that is acute, swelling, tenderness. cp The complaints affect the right elbow. Context: resulted from a fall, onto elbow 2 days ago. Treatment prior to arrival includes: no previous treatment. Historical: - Allergies: 21:52 No Known Allergies; bm8 - Home Meds: 21:52 None [Active]; bm8 - PMHx: 21:52 None; bm8 - PSHx: 21:52 right wrist repair; bm8 - Immunization history:: Adult Immunizations up to date. - Infectious Disease History:: Denies. - Social history:: Smoking status: Patient denies any tobacco usage or history of. Patient uses marijuana. ROS: 22:35 Constitutional: Positive for fever, cp 22:35 Eyes: Negative for injury, pain, redness, and discharge, cp 22:35 ENT: Negative for drainage from ear(s), ear pain, sore throat, difficulty swallowing, difficulty handling secretions, 22:35 Cardiovascular: Negative for chest pain, 22:35 Respiratory: Negative for cough, shortness of breath, wheezing, 22:35 Back: Negative for pain at rest, pain with movement, 22:35 MS/extremity: Positive for erythema, pain, swelling, tenderness, of the right elbow, Negative for decreased range of motion, deformity, paresthesias, 22:35 Neuro: Negative for altered mental status, dizziness, headache, weakness, 22:35 All other systems are negative, Exam: 22:40 Head/Face: Normocephalic, atraumatic. cp 22:40 Constitutional: The patient appears in no acute distress, alert, awake, non-toxic, well developed, well nourished, 22:40 Eyes: Periorbital structures: appear normal, Conjunctiva: normal, no exudate, no injection, Sclera: no appreciated abnormality, Lids and lashes: appear normal, bilaterally, 22:40 ENT: External ear(s): are unremarkable, Nose: is normal, Mouth: Lips: moist, Oral mucosa: moist, Posterior pharynx: Airway: no evidence of obstruction, patent, 22:40 Neck: ROM/movement: is normal, is supple, without pain, no range of motions limitations, 22:40 Chest/axilla: Inspection: normal, 22:40 Cardiovascular: Rate: normal, Rhythm: regular, Pulses: Pulses are 2+ in right radial artery. 22:40 Respiratory: the patient does not display signs of respiratory distress, Respirations: normal, no use of accessory muscles, no retractions, labored breathing, is not present, Breath sounds: are clear throughout, no decreased breath sounds, no stridor, no wheezing, 22:40 Abdomen/GI: Exam negative for discomfort, distension, guarding, Inspection: abdomen appears normal, 22:40 Back: pain, is absent, ROM is normal, 22:40 Musculoskeletal/extremity: Extremities: grossly normal except: noted in the postarior aspect of right elbow: erythema, pain, swelling, tenderness, mild pain with passive ROM right elbow with no restriction, Vital Signs: 21:49 BP 124 / 84; Pulse 85; Resp 18; Temp 100.6; Pulse Ox 100% ; Weight 63.5 kg; Height 5 bm8 ft. 9 in. ; Pain 8/10; 22:00 BP 139 / 58; Pulse 91; Resp 16; Pulse Ox 98% on R/A; km8 23:00 BP 125 / 74; Pulse 91; Resp 16; Pulse Ox 95% on R/A; km8 02/24 00:00 BP 105 / 62; Pulse 92; Resp 16; Temp 99.3(O); Pulse Ox 95% on R/A; km8 01:00 BP 117 / 61; Pulse 87; Resp 16; Pulse Ox 95% on R/A; km8 02/23 21:49 Body Mass Index 20.67 (63.50 kg, 175.26 cm) [facility] 02/23 21:49 Pain Scale: Adult bm8 [place] Coma Score: 02/23 22:15 Eye Response: spontaneous(4). Motor Response: obeys commands(6). Verbal Response: km8 oriented(5). Total: 15. MDM: 21:58 Patient medically screened. 02/24 00:15 Data reviewed: vital signs, nurses notes, lab test result(s), radiologic studies, plain cp films. 00:15 Differential diagnosis: cellulitis, abscess, septic joint. Consideration of cp Admission/Observation Patient was admitted/placed on observation. Management of patient was discussed with the following: Hospitalist: Dr Way will admit after discussion. Counseling: I had a detailed discussion with the patient and/or guardian regarding the historical points, exam findings, and any diagnostic results supporting the discharge/admit diagnosis, lab results, radiology results, the need for further work-up and treatment in the hospital. Response to treatment: the patient's symptoms have mildly improved after treatment. 02/23 22:13 Order name: CBC with Diff; Complete Time: 23:41 02/23 23:41 Interpretation: Normal except: WBC 18.10; JOVANA% 83.6; LYM% 7.6; NEUT A 15.1; MNA 1.5. 02/23 22:13 Order name: BMP; Complete Time: 23:41 02/23 23:41 Interpretation: Normal except: NA 135. 02/23 22:13 Order name: CRP; Complete Time: 23:41 02/23 23:51 Order name: Lactate w/ 2H reflex if indic. 02/23 23:51 Order name: Blood Culture Adult (2) 02/24 00:14 Order name: Urinalysis w/ reflexes EDN[facility] 02/24 00:14 Order name: CBC with Automated Diff [facility] 02/24 00:14 Order name: CBC with Automated Diff [facility] 02/24 00:14 Order name: Comprehensive Metabolic Panel [facility] 02/24 00:14 Order name: Comprehensive Metabolic Panel [facility] 02/24 00:16 Order name: Vancomycin Level Trough [facility] 02/23 22:13 Order name: XRAY Elbow RIGHT 3 view; Complete Time: 22:49 02/24 00:14 Order name: CONS Physician Consult [facility] 02/23 22:13 Order name: IV; Complete Time: 22:33 cp Administered Medications: 02/23 22:33 Drug: Ibuprofen PO 800 mg PO once Route: PO; [facility] 02/24 00:09 Follow up: Response: No adverse reaction [facility] 02/23 22:33 Drug: NS 0.9% IV 1000 ml IV at 1 bolus Per protocol; 1000 mL bolus Route: IV; Rate: 1 km8 bolus; Site: left forearm; 02/24 00:09 Follow up: IV Status: Completed infusion; IV Intake: 1000ml 8 00:18 Drug: Cefepime IVPB 1 grams IVPB at 200 ml/hr once over 30 mins; (mix in NS 100 mL) 8 Route: IVPB; Rate: 200 ml/hr; Infused Over: 30 mins; Site: left forearm; 00:47 Follow up: IV Status: Completed infusion; IV Intake: 100ml 00:47 Drug: vancoMYCIN IVPB 1 grams IVPB once over 2 hrs Route: IVPB; Infused Over: 2 hrs; 8 Site: left forearm; 01:45 Follow up: Response: No adverse reaction; Other; IV Status: Infusion continued bm8 Disposition Summary: 02/25/24 00:11 Hospitalization Ordered Notes: Hospitalization Status: Inpatient Admission cp Provider: Keny Way cp [facility] cp Condition: Stable cp Problem: new cp Symptoms: have improved cp Bed/Room Type: Standard cp Room Assignment: 419(02/25/24 00:41) sp Diagnosis - Other infective bursitis, right elbow cp Forms: - Medication Reconciliation Form cp - SBAR form cp - Leadership Thank You Letter cp Signatures: Dispatcher [employer] EDMS Majo Aguilar Corey, PA PA cp Angeline Houser, RN RN km8 Berry Villela RN RN bm8 Corrections: (The following items were deleted from the chart) 02/23 22:13 22:13 CBC+H.LAB.BRZ ordered. EDMS EDMS 22:13 22:13 BASIC METABOLIC PANEL+C.LAB.BRZ ordered. EDMS EDMS 22:13 22:13 C-REACTIVE PROTEIN+C.LAB.BRZ ordered. EDMS EDMS 02/24 00:41 00:11 cp sp 02/25 01:02/24 22:40 Constitutional: The patient appears in no acute distress, alert, awake, cp non-toxic, well developed, well nourished, cp 02/25 01:04 02/24 22:40 Head/Face: Normocephalic, atraumatic. cp cp 04:02/24 22:40 Eyes: Periorbital structures: appear normal, Conjunctiva: normal, no cp exudate, no injection, Sclera: no appreciated abnormality, Lids and lashes: appear normal, bilaterally, cp 02/25 01:02/24 22:40 ENT: External ear(s): are unremarkable, Nose: is normal, Mouth: Lips: cp moist, Oral mucosa: moist, Posterior pharynx: Airway: no evidence of obstruction, patent, cp 02/25 01:02/24 22:40 Neck: ROM/movement: is normal, is supple, without pain, no range of motions cp limitations, cp 02/25 01:02/24 22:40 Chest/axilla: Inspection: normal, cp cp 02/25 01:02/24 22:40 Cardiovascular: Rate: normal, Rhythm: regular, Pulses: Pulses are 2+ in cp right radial artery. cp 02/25 01:02/24 22:40 Respiratory: the patient does not display signs of respiratory distress, cp Respirations: normal, no use of accessory muscles, no retractions, labored breathing, is not present, Breath sounds: are clear throughout, no decreased breath sounds, no stridor, no wheezing, cp 02/25 01:02/24 22:40 Abdomen/GI: Exam negative for discomfort, distension, guarding, Inspection: cp abdomen appears normal, cp 02/25 01:02/24 22:40 Back: pain, is absent, ROM is normal, cp cp 02/25 01:02/24 22:40 Musculoskeletal/extremity: Extremities: grossly normal except: noted in the cp postarior aspect of right elbow: erythema, pain, swelling, tenderness, mild pain with passive ROM right elbow with no restriction, cp
[2024-02-25] MEDS: NA CHLORIDE 0.9% 1,000 ML IV SCH (02:58)
[2024-02-25] MEDS: ONDANSETRON 4 MG/2 ML VIAL IV PRN (02:58)
[2024-02-25 05:30] LABS: Specific Gravity > 1.030 (1.005-1.030); Sqamous Epithelial <5 /HPF (None Seen); Urine Bacteria None Seen /HPF (<20); Urine Bilirubin NEGATIVE (Negative); Urine Blood Negative (Negative); Urine Clarity Clear (Clear); Urine Color Yellow (Yellow); Urine Culture Reflex Order REFLEXED; Urine Glucose NEGATIVE (Negative); Urine Ketones 1+ (Negative); Urine Microscopic Reflex YN ORDER UMIC; Urine Mucus Slight /HPF (None Seen); Urine Nitrite NEGATIVE (Negative); Urine Protein 1+ (Negative); Urine RBC <5 /HPF (None Seen); Urine Urobilinogen 2+ (Normal); Urine pH 7.5 (5.0-7.0)
[2024-02-25] MEDS: CEFTRIAXONE 1,000 MG in NA CHLORIDE 0.9% 50 ML IVPB SCH (08:47)
[2024-02-25] MEDS: ENOXAPARIN 40 MG/0.4 ML SQ SCH (08:47)
[2024-02-25] MEDS: VANCOMYCIN 1 GM in NA CHLORIDE 0.9% 250 ML IVPB SCH (11:00)
[2024-02-25] MEDS ORDERED: VANCOMYCIN 1 GM in NA CHLORIDE 0.9% 250 ML IVPB SCH (12:00)
--- NOTE | 2024-02-25 15:40 | P.PN ---
Date of Service: 02/25/24 Patient was seen and examined. He reports his right elbow pain is better. He has been afebrile He had mild leukocytosis. Plan: IV Vanco and Rocephin for right elbow cellulitis and abscess. Orthopedics consulted. Possible UTI, follow urine culture.
[2024-02-25] MEDS: HYDROCODONE/APAP 10/325 TAB PO PRN (16:40)
[2024-02-26 03:07] VITALS: BMI 20.7
--- NOTE | 2024-02-26 07:49 | P.PN ---
Date of Service: 02/26/24 Subjective: Feels swelling/erythema in elbow is improving but still dealing with pain in area pain/tightness with ROM of elbow reports hitting elbow against concrete while skateboarding prior to admission febrile yesterday morning ROS: 10 point ROS as noted above, otherwise negative Physical Exam: GEN: Alert, oriented, NAD CV: Regular rate and rhythm, no edema Pulm: Nonlabored respirations on room air, clear bilaterally MSK: mild swelling of R elbow, ROM limited slightly by pain/tightness, mild tenderness with palpation of joint Integumentary: right elbow swelling/erythema with surrounding induration Problem List: Right Elbow cellulitis xray R elbow (02/23): Soft tissue prominence along the olecranon. no acute fracture Dr. Villela, ortho consulted to eval if I&D / joint needed blood cx (02/24): NGTD urine cx (02/24): prelim no growth continue empiric vanc / rocephin (02/24-) +leukocytosis, +CRP elevated and increased continue IV fluids this morning monitor BP, was low overnight, asymptomatic PRN analgesics / antiemetics swelling/erythema improving per patient decrease IV fluids/pain meds (02/25) given low-normal BP VTE: Lovenox Code: Full Dispo: Home, 1-2 days Pending afebrile > 24 hours, ortho recs
[2024-02-26] MEDS: HYDROCODONE/APAP 5/325 MG TAB PO PRN (08:10)
[2024-02-26 09:28] LABS: Absolute Eosinophils 0.2 K/uL (0-0.5); Absolute Lymphocytes (CBC) 1.7 K/uL (0.7-4.9); Absolute Monocytes 1.1 K/uL (0.1-1.3); Absolute Neutrophil 10.6 K/uL (1.8-8.0); Basophils % 0.4 % (0-1.3); Eosinophils % 1.3 % (0-4.4); Hematocrit 41.7 % (39.6-49.0); Hemoglobin 14.3 g/dL (13.6-17.9); Lymphocytes % 12.7 % (15.3-44.8); MCH 31.7 pg (27.0-35.0); MCHC 34.3 g/dL (32.0-36.0); MCV 92.4 fL (80-100); MPV 8.9 fL (7.6-11.3); Monocytes % 8.2 % (3.3-12.3); Neutrophils % 77.4 % (41.7-73.7); Nucleated Red Blood Cells % 0.1 % (0-0); Platelets 182 thou/uL (152-406); RBC Red Blood Cell Count 4.51 M/uL (4.33-5.43); Red Cell Distribution Width 12.7 % (12.1-15.2)
[2024-02-26 09:52] LABS: Albumin 3.1 g/dL (3.4-5.0); Albumin/Globulin Ratio 0.9 (1.1-1.8); Anion Gap 7.6 mEq/L (5.0-15.0); Bilirubin Total 0.7 mg/dL (0.2-1.0); Globulin 3.5 g/dL (2.3-3.5); Phosphorus 1.9 mg/dL (2.5-4.9); Potassium 3.6 mEq/L (3.5-5.1); Protein, Total 6.6 g/dL (6.4-8.2)
[2024-02-26] MEDS: POTASS/SODIUM PHOSPHATE 1 PKT POWD.PACK PO ONE (10:37)
[2024-02-26] MEDS: POTASSIUM 25 MEQ EFFERV TAB PO ONE (10:37)
--- NOTE | 2024-02-26 20:27 | CON ---
Reason For Consultation: Right elbow cellulitis. History Of Present Illness: Mr. Hardy fell off a skateboard and has redness and swelling from a pun cture wound over his left olecranon. He has been managed with intravenous antibiotics and has showed dramatic improvement. We were asked to consult for this. This does not need surgery. There is no abscess. There is no fluctuant area. This will resolve completely with intravenous and switched to p.o. antibiotics. There is no orthopedic intervention needed in this case now. SUBHASH/JIMENA Voice ID: [id number] Report ID: [id number]
[2024-02-26 21:45] VITALS: O2SAT 98
[2024-02-27 04:55] LABS: Absolute Eosinophils 0.3 K/uL (0-0.5); Absolute Lymphocytes (CBC) 2.2 K/uL (0.7-4.9); Absolute Monocytes 1.1 K/uL (0.1-1.3); Absolute Neutrophil 7.6 K/uL (1.8-8.0); Basophils % 0.4 % (0-1.3); Eosinophils % 2.3 % (0-4.4); Hematocrit 42.6 % (39.6-49.0); Hemoglobin 14.5 g/dL (13.6-17.9); Lymphocytes % 19.9 % (15.3-44.8); MCH 31.5 pg (27.0-35.0); MCHC 34.1 g/dL (32.0-36.0); MCV 92.4 fL (80-100); Monocytes % 9.5 % (3.3-12.3); Neutrophils % 67.9 % (41.7-73.7); Nucleated Red Blood Cells % 0.1 % (0-0); Platelets 204 thou/uL (152-406); RBC Red Blood Cell Count 4.61 M/uL (4.33-5.43); Red Cell Distribution Width 12.4 % (12.1-15.2)
[2024-02-27 05:09] LABS: Anion Gap 6.2 mEq/L (5.0-15.0); C-Reactive Protein 84.9 mg/L (<3.00); Magnesium 2.2 mg/dL (1.6-2.4); Potassium 4.2 mEq/L (3.5-5.1)
[2024-02-27 05:24] LABS: Phosphorus 3.2 mg/dL (2.5-4.9)
--- NOTE | 2024-02-27 08:53 | P.DS ---
Admission Date: 02/26/24 Discharge Date: 02/27/24 Disposition: ROUTINE DISCHARGE Discharge Condition: GOOD Reason for Admission: Elbow Pain Consultations: Ortho - Dr. Villela Brief History of Present Illness: 23yo M, PMH: no significant past medical history Patient presented to the ED with pain and swelling in right elbow which has been going on for the last 2 days that has been progressively worsening and was brought to ER. Patient had a fall and hit his elbow few days ago. He did not feel that much pain at the time. Denies any fever or chills. Patient started having pain and swelling of the right elbow associated with redness and was brought to ER as it was progressively getting worse. Denies any nausea vomiting or diarrhea. No sick contacts. Patient was assessed in the ER and was noted to have possible abscess of left elbow region and was admitted for IV antibiotic and orthopedic consultation. Hospital Course: Problem List: Right Elbow cellulitis Physician discharge instructions: Patient presented with worsening swelling/erythema/pain of right elbow and was found to have cellulitis. Xray noted soft tissue prominence along the olecranon without evidence of acute fracture / abscess. Patient was given empiric vancomycin / rocephin while hospitalized and had improvement of his symptoms. Urine and blood cultures were without growth. Dr. Villela, ortho, evaluated patient for possible I&D and recommended to continue medical management with antibiotics. No findings to warrant acute surgical intervention. Patient was feeling better, afebrile > 24 hours, leukocytosis improving, and was deemed stable for discharge. Patient is to complete 7 days of bactrim on discharge. Keep affected area clean and dry. Avoid creams around opening of wound. Showering is okay. Do not keep wound submerged underwater. Medications: Bactrim twice daily for 1 week Follow up: PCP 3-5 days please call to schedule / confirm appointments Physical Exam: GEN: Alert, oriented, NAD HEENT: Normal conjunctiva, sclera anicteric CV: Regular rate and rhythm, no edema Pulm: Nonlabored respirations on room air, clear bilaterally MSK: minimal R elbow pain with ROM ABD: soft, nontender, nondistended Integumentary: minimal right elbow erythema Neuro: Normal speech, normal affect Vital Signs/Physical Exam: Temp Pulse Resp BP Pulse Ox 98.8 F 69 15 151/65 H 100 02/27/24 08:00 02/27/24 08:00 02/27/24 08:00 02/27/24 08:00 02/27/24 08:00 Laboratory Data at Discharge: WBC 11.10 thou/uL (4.3-10.9) H 02/27/24 03:57 Hgb 14.5 g/dL (13.6-17.9) 02/27/24 03:57 Hct 42.6 % (39.6-49.0) 02/27/24 03:57 Plt Count 204 thou/uL (152-406) 02/27/24 03:57 Sodium 137 mEq/L (136-145) 02/27/24 03:57 Potassium 4.2 mEq/L (3.5-5.1) 02/27/24 03:57 BUN 10 mg/dL (7-18) 02/27/24 03:57 Creatinine 0.95 mg/dL (0.70-1.30) 02/27/24 03:57 Glucose 94 mg/dL (74-106) 02/27/24 03:57 Phosphorus 3.2 mg/dL (2.5-4.9) 02/27/24 03:57 Magnesium 2.2 mg/dL (1.6-2.4) 02/27/24 03:57 Total Bilirubin 0.7 mg/dL (0.2-1.0) 02/26/24 09:09 AST 37 U/L (15-37) 02/26/24 09:09 ALT 62 U/L (16-61) H 02/26/24 09:09 Alkaline Phosphatase 78 U/L (45-117) 02/26/24 09:09 Home Medications: Smz./Tmp. [Bactrim Ds 800 MG/160 MG] 1 tab PO BID 7 Days #14 tab 02/27/24 New Medications: Smz./Tmp. [Bactrim Ds 800 MG/160 MG] 1 tab PO BID 7 Days #14 tab Physician Discharge Instructions: Physician discharge instructions: Patient presented with worsening swelling/erythema/pain of right elbow and was found to have cellulitis. Xray noted soft tissue prominence along the olecranon without evidence of acute fracture / abscess. Patient was given empiric vancomycin / rocephin while hospitalized and had improvement of his symptoms. Urine and blood cultures were without growth. Dr. Villela, ortho, evaluated patient for possible I&D and recommended to continue medical management with antibiotics. No findings to warrant acute surgical intervention. Patient was feeling better, afebrile > 24 hours, leukocytosis improving, and was deemed stable for discharge. Patient is to complete 7 days of bactrim on discharge. Keep affected area clean and dry. Avoid creams around opening of wound. Showering is okay. Do not keep wound submerged underwater. Medications: Bactrim twice daily for 1 week Follow up: PCP 3-5 days please call to schedule / confirm appointments Followup: NONE,NONE [Primary Care Provider] - Time spent managing pt's care (in minutes): 45
[2024-02-27 08:54] VITALS: BP 151/65; TEMP 98.8
[2024-02-27] MEDS ORDERED: VANCOMYCIN 1 GM in NA CHLORIDE 0.9% 250 ML IVPB SCH (17:00)
== END 2024-02-27 12:15 | disposition home or self-care (01) | DRG 603 ==
LOC: ER 21:28 → ERHOLD 02-25 00:07 → 4TH 02-25 01:20 → OBSVTOIN 02-26 12:55
PROVIDERS: ADMIT Family Medicine; ATTEND Hospitalist
DX: L03.113 Cellulitis of right upper limb (principal); E87.1 Hypo-osmolality and hyponatremia; M71.021 Abscess of bursa, right elbow; D72.829 Elevated white blood cell count, unspecified; V00.131A Fall from skateboard, initial encounter; Y93.9 Activity, unspecified; Y92.9 Unspecified place or not applicable; Y99.9 Unspecified external cause status
CPT/HCPCS: 36415; 80048; 80053; 80202; 81001; 83605; 83735; 84100; 84132; 85025; 86140; 87040; 87086; 87088; 96361; 96365; 96367; 99285; G0378; J0692; J0696; J1650; J2405; J7030; J7050

== ENCOUNTER 2024-12-17 01:39 | Emergency (ER) | payer SELFPAY ==
[2024-12-17] MEDS ORDERED: LIDOCAINE 1% 20 ML MDV ONE (02:10)
[2024-12-17] MEDS ORDERED: DERMABOND SKIN ADHESIVE TOP ONE (02:12)
--- OUTSIDE RECORDS SUMMARY | 2024-12-17 04:21 | XMS REPORT | Continuity of Care Document ---
Author Name Unknown Address [address] [place] [address] [facility] Address 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 Name Role Phone Pcp, Patient Does Not Have A Primary Care Physic benjy Young Way MD Attending Clinician [phone] Attending Clinician Unavailable Payers Payer Name Policy Type Policy Number Effective Date Expirati on Date Source [facility] [id number] 2017 00:00:00 2022 00:00:00 Allergies, Adverse Reactions, Alerts Allergy Name Allergy Type Status Severity Reaction(s) Onset Date Inactive Date Treating Clinician Comments Source NO KNOWN ALLERGIE S Drug Class Active [facility] Social History Social Habit Start Date Stop Date Quantity Comments Source Sexual orientation [facility] Sex Assigned At 2000 00:00:00 2000 00:00:00 [facility] Smoking Status Start Date Stop Date Source Tobacco smoking consumption unknown [facility] Encounters Start Date/Time End Date/Time Encounter Type Admission Type Attending Clinicians Care Facility Care Department Encounter ID Source 2024-02-26 09:22:00 2024-02-26 23:59:[address] [facility] [id number] [facility] 2017-05-01 16:01:18 2017-05-01 18:57:00 Emergency [address] [facility] ERT [id number] [facility]
--- NOTE | 2024-12-17 04:29 | EDPHYS ---
Physician Documentation [facility] Name: Antony Byrnes Jr Age: 23 yrs Sex: Male : 2000 Arrival Date: 12/17/2024 Time: 01:39 Bed 5 Private MD: ED Physician Jose Storey HPI: 12/17 03:08 This 23 yrs old Male presents to ER via Ambulatory with complaints of sp3 Laceration To Head. 03:08 23-year-old male with no past medical history presents with mechanical fall while sp3 running in the rain and falling onto a ladder that was hanging out of the back of a pickup truck in the driveway. No LOC significant head injury reported however patient has a laceration to the forehead and 1 to the superior bridge of his nose. The 1 on the forehead is approximately 3 cm and superficial in nature and the 1 on the bridge is 1 cm. He denies any other injury.. Historical: - Allergies: 01:53 No Known Allergies; vc1 - Home Meds: 01:53 None [Active]; vc1 - PMHx: 01:53 None; vc1 - PSHx: 01:53 right wrist repair; vc1 - Immunization history:: Client reports having NOT received the Covid vaccine. - Infectious Disease History:: Denies. - Social history:: Smoking status: Reported history of juuling and/or vaping. ROS: 03:09 Constitutional: Negative for fever, chills, and weight loss, Eyes: Negative for injury, sp3 pain, redness, and discharge, ENT: Negative for injury, pain, and discharge, Neck: Negative for injury, pain, and swelling, Cardiovascular: Negative for chest pain, palpitations, and edema, Respiratory: Negative for shortness of breath, cough, wheezing, and pleuritic chest pain, Abdomen/GI: Negative for abdominal pain, nausea, vomiting, diarrhea, and constipation, Back: Negative for injury and pain, MS/Extremity: Negative for injury and deformity, Neuro: Negative for headache, weakness, numbness, tingling, and seizure, Psych: Negative for depression, anxiety, suicide ideation, homicidal ideation, and hallucinations, Allergy/Immunology: Negative for hives, rash, and allergies, Endocrine: Negative for neck swelling, polydipsia, polyuria, polyphagia, and marked weight changes, Hematologic/Lymphatic: Negative for swollen nodes, abnormal bleeding, and unusual bruising, 03:09 All other systems are negative, Exam: 03:09 Constitutional: This is a well developed, well nourished patient who is awake, alert, sp3 and in no acute distress. Eyes: Pupils equal round and reactive to light, extra-ocular motions intact. Lids and lashes normal. Conjunctiva and sclera are non-icteric and not injected. Cornea within normal limits. Periorbital areas with no swelling, redness, or edema. ENT: Nares patent. No nasal discharge, no septal abnormalities noted. External auditory canals are clear. Oropharynx with no redness, swelling, or masses, exudates, or evidence of obstruction, uvula midline. Mucous membranes moist. Neck: Trachea midline, no thyromegaly or masses palpated, and no cervical lymphadenopathy. Supple, full range of motion without nuchal rigidity, or vertebral point tenderness. No Meningismus. Chest/axilla: Normal chest wall appearance and motion. Nontender with no deformity. No lesions are appreciated. Cardiovascular: Regular rate and rhythm with a normal S1 and S2. No gallops, murmurs, or rubs. Normal PMI, no JVD. No pulse deficits. Respiratory: Lungs have equal breath sounds bilaterally, clear to auscultation and percussion. No rales, rhonchi or wheezes noted. No increased work of breathing, no retractions or nasal flaring. Abdomen/GI: Soft, non-tender, with normal bowel sounds. No distension or tympany. No guarding or rebound. No evidence of tenderness throughout. Back: No spinal tenderness. No costovertebral tenderness. Full range of motion. Skin: Warm, dry with normal turgor. Normal color with no rashes, no lesions, and no evidence of cellulitis. MS/ Extremity: Pulses equal, no cyanosis. Neurovascular intact. Full, normal range of motion. Neuro: Awake and alert, GCS 15, oriented to person, place, time, and situation. Cranial nerves II-XII grossly intact. Motor strength 5/5 in all extremities. Sensory grossly intact. Cerebellar exam normal. Normal gait. Psych: Awake, alert, with orientation to person, place and time. Behavior, mood, and affect are within normal limits. 03:09 Head/face: 3 cm superficial laceration to the forehead horizontal and lie. 1 cm laceration on superior aspect of bridge of the nose also horizontal lie.. Vital Signs: 01:50 Weight 54.43 kg; Height 5 ft. 8 in. ; Pain 6/10; vc1 01:56 BP 127 / 95; Pulse 100; Resp 18; Temp 98.5; Pulse Ox 98% ; vc1 02:51 BP 118 / 82; Pulse 90; Resp 18; Pulse Ox 97% ; br2 01:50 Body Mass Index 18.25 (54.43 kg, 172.72 cm) vc1 01:50 Pain Scale: Adult vc1 Laceration: 03:11 Wound Repair of 1cm ( 0.4in ) subcutaneous laceration to face. Distal sp3 neuro/vascular/tendon intact. Wound prep: Simple cleansing. Skin closed with 1-0 Prolene using Dermabond. Patient tolerated well. MDM: 02:48 Medical Screening Exam initiated sp3 03:10 Data reviewed: vital signs, nurses notes. ED course: Forehead laceration no repair sp3 indicated. Nasal bridge laceration closed with Dermabond.. 12/17 01:56 Order name: Dermabond; Complete Time: 02:16 vc1 12/17 01:56 Order name: Dressing - Wound; Complete Time: 02:16 vc1 12/17 01:56 Order name: Gloves, Sterile; Complete Time: 02:16 vc1 12/17 01:56 Order name: Setup Suture Tray; Complete Time: 02:16 vc1 12/17 01:56 Order name: Wound Care vc1 Administered Medications: 03:32 Not Given (Physician Discretion): lidocaine(1 %) 20 ml 20 ml Infiltration once; to br2 bedside Disposition Summary: 12/17/24 03:13 Discharge Ordered Notes: Location: Home sp3 Condition: Stable sp3 Diagnosis - Nasal bridge laceration with Dermabond repair, forehead laceration sp3 Followup: sp3 - With: Private Physician - When: Upon discharge from the Emergency Department - Reason: Continuance of care Discharge Instructions: - Discharge Summary Sheet sp3 - Sutures, [place], or Adhesive Wound Closure sp3 Forms: - Medication Reconciliation Form sp3 - Antibiotic Education sp3 - Prescription Opioid Use sp3 - Patient Portal Instructions sp3 - Leadership Thank You Letter sp3 Signatures: Jose Storey MD MD sp3 Viky Egan, KAYLA RN vc1 Mary Smith RN br2
--- NOTE | 2024-12-17 04:29 | ER ---
Nurse's Notes [facility] Name: Antony Byrnes Jr Age: 23 yrs Sex: Male : 2000 Arrival Date: 12/17/2024 Time: 01:39 Bed 5 Private MD: Diagnosis: Nasal bridge laceration with Dermabond repair, forehead laceration Presentation: 12/17 01:50 Chief complaint: Patient states: running and slipped hitting face into aluminum ladder vc1 causing a facial lac on forehead and nose. Coronavirus screen: Client denies travel out of the [place] in the last 14 days. At this time, the client does not indicate any symptoms associated with coronavirus-19. Ebola Screen: Patient negative for fever greater than or equal to 101.5 degrees Fahrenheit, and additional compatible Ebola Virus Disease symptoms Patient denies exposure to infectious person. Patient denies travel to an Ebola-affected area in the 21 days before illness onset. No symptoms or risks identified at this time. Complicating Factors: There are no complicating factors for this patient. Initial Sepsis Screen: Does the patient meet any 2 criteria? No. Patient's initial sepsis screen is negative. Does the patient have a suspected source of infection? No. Patient's initial sepsis screen is negative. Risk Assessment: Do you want to hurt yourself or someone else? Patient reports no desire to harm self or others. Onset of symptoms was December 17, 2024. 01:50 Method Of Arrival: Ambulatory vc1 01:50 Acuity: CORINA 3 vc1 Historical: - Allergies: 01:53 No Known Allergies; vc1 - Home Meds: 01:53 None [Active]; vc1 - PMHx: 01:53 None; vc1 - PSHx: 01:53 right wrist repair; vc1 - Immunization history:: Client reports having NOT received the Covid vaccine. - Infectious Disease History:: Denies. - Social history:: Smoking status: Reported history of juuling and/or vaping. Screenin:53 [facility] ED Fall Risk Assessment (Adult) History of falling in the last 3 months, vc1 including since admission Yes- single mechanical fall (1 pt) Confusion or Disorientation No (0 pts) Intoxicated or Sedated No (0 pts) Impaired Gait No (0 pts) Mobility Assist Device Used No (0 pt) Altered Elimination No (0 pt) Score/Fall Risk Level 0 - 2 = Low Risk Oriented to surroundings, Maintained a safe environment, Educated pt \T\ family on fall prevention, incl call for assistance when getting out of bed. Abuse screen: Denies threats or abuse. Nutritional screening: No deficits noted. Tuberculosis screening: No symptoms or risk factors identified. Assessment: 02:18 Reassessment: Patient and/or family updated on plan of care and expected duration. Pain br2 level reassessed. Patient is alert, oriented x 3, equal unlabored respirations, skin warm/dry/pink. General: Appears in no apparent distress. comfortable, Behavior is calm, cooperative. Pain: Complains of pain in forehead Pain currently is 5 out of 10 on a pain scale. Injury Description: Laceration is superficial, 0.5 to 2.5 cm long. Vital Signs: 01:50 Weight 54.43 kg; Height 5 ft. 8 in. ; Pain 6/10; vc1 01:56 BP 127 / 95; Pulse 100; Resp 18; Temp 98.5; Pulse Ox 98% ; vc1 02:51 BP 118 / 82; Pulse 90; Resp 18; Pulse Ox 97% ; br2 01:50 Body Mass Index 18.25 (54.43 kg, 172.72 cm) vc1 01:50 Pain Scale: Adult vc1 ED Course: 01:39 Patient arrived in ED. jj6 01:47 Jose Storey MD is Attending Physician. vc1 01:53 Triage completed. vc1 01:53 Arm band placed on left wrist. vc1 01:54 Patient has correct armband on for positive identification. Bed in low position. Call vc1 light in reach. 02:04 Mary Smith, KAYLA is Primary Nurse. br2 03:32 Assist provider with laceration repair on forehead using Dermabond. Set up tray. br2 03:33 Patient did not have IV access during this emergency room visit. br2 Administered Medications: 03:32 Not Given (Physician Discretion): lidocaine(1 %) 20 ml 20 ml Infiltration once; to br2 bedside Medication: 01:54 VIS not applicable for this client. vc1 Outcome: 03:13 Discharge ordered by . sp3 03:32 Discharged to home ambulatory, br2 03:32 Condition: good 03:32 Discharge instructions given to patient, Instructed on discharge instructions, follow up and referral plans. Demonstrated understanding of instructions, follow-up care, 03:33 Patient left the ED. br2 Signatures: Jose Storey MD MD sp3 Marcella Callejas6 Viky Egan RN RN vc1 Mary Smith RN RN br2
--- NOTE | 2024-12-17 06:00 | RAD REPORT ---
EXAM DESCRIPTION: XR FACIAL BONES 1-3 VIEWS 12/17/2024 3:42 AM PROPERTY MANAGEMENT SPECIALIST CLINICAL HISTORY: 23 years, Male, Laceration to bridge of nose and forehead. COMPARISON: None. FINDINGS: 3 X-ray views of the Facial bones (Mariano, Khan and lateral projections) were obtained. Zygomas d emonstrate to be unremarkable. Orbits demonstrate to be intact. Nasal bones demonstrate no significant fractures. No areas of acute bony injuries were demonstrated. No evidence for fluid level within the maxillary sinus. There are no gross intraosseous lesions. No periosteal reaction were seen. IMPRESSION: No significant bony injuries were demonstrated. Electronically signed by: Adrián España MD 12/17/2024 03:53 AM PROPERTY MANAGEMENT SPECIALIST Due to temporary technical issues with the [employer] reporting system, reports are being amalia d by the in-house radiologist without review as a courtesy to ensure prompt reporting the interpreting radiologist is fully responsible for the content of the report. Transcribed Date/Time: 12/17/2024 6:00 AM
[2024-12-17 14:39] VITALS: BP 118/82; TEMP 98.5; O2SAT 97
== END 2024-12-17 03:33 | disposition home or self-care (01) ==
LOC: ER 01:39
DX: S01.21XA Laceration without foreign body of nose, initial encounter (principal); S01.81XA Laceration without foreign body of other part of head, initial encounter
CPT/HCPCS: 70140; J2003

== ENCOUNTER 2025-07-04 17:00 | Emergency (ER) | payer OTHER, SELFPAY ==
--- OUTSIDE RECORDS SUMMARY | 2025-07-04 17:03 | XMS REPORT | Continuity of Care Document ---
Author Name Unknown Address [address] [place] [address] Organization [facility] Address [address] [place] [address] Care Team Providers Care [employer] Name Role Phone Karan Sesay Primary Care Physician Young Way MD Attending Clinician BYRON BOX Attending Clinician Unavailable Payers Payer Name Policy Type Policy Number Effective Date Expirati on Date Source [facility] [id number] 2017 00:00:00 2022 00:00:00 Allergies, Adverse Reactions, Alerts Allergy Name Allergy Type Status Severity Reaction(s) Onset Date Inactive Date Treating Clinician Comments Source NO KNOWN ALLERGIE S Drug Class Active [facility] Social History Social Habit Start Date Stop Date Quantity Comments Source Sexual orientation U [facility] Sex Assigned At 2000 00:00:00 2000 00:00:00 [facility] Smoking Status Start Date Stop Date Source Tobacco smoking consumption unknown [facility] Medications Ordered Medication Name Filled Medication Name Start Date Stop Date Current Medication? Ordering Clinician Indication Dosage Frequency Signature (SIG) Comments Components Source amoxicillin 500 mg tablet 07 00:00: 00 Yes 1mg Rogerio F Micheal amoxicillin 875 mg tablet 2017-11 2-14 00:00: 00 Yes 1mg Rogerio Vizcaino Micheal loratadine 10 mg tablet 2016-11 00:00: 00 Yes 1mg Rogerio Burton loratadine 10 mg tablet 2016-11 00:00: 00 Yes 1mg Rogerio Burton prednisolon e 15 mg/5 mL oral solution 2016-11 00:00: 00 Yes 10mg/5 mL Rogerio Burton promethazin e-DM 6.25 mg-15 mg/5 mL syrup 2016-11 00:00: 00 Yes 10mg/5 mL Rogerio Burton triamcinolo ne acetonide 0.1 % dental paste 12-20 00:00: 00 Yes 1% Rogerio Burton Vital Signs Vital Name Observation Time Observation Value Comments S ourjl BP Systolic 2025-03-25 08:56:00 113 mm[Hg] Step hen F Micheal BP Diastolic 2025-03-25 08:56:00 74 mm[Hg] Akira phen F Micheal Weight Measured 2025-03-25 08:56:00 150.20 pounds Rogerio Carrillo Burton Height Measured 2025-03-25 08:56:00 68.00 inches Rogerio Burton Body Temperature 2025-03-25 08:56:00 98.10 degrees Rogerio Carrillo Burton Heart Rate 2025-03-25 08:56:00 95.00 /min Myra en F Micheal Respiratory Rate 2025-03-25 08:56:00 18.00 /min Rogerio Carrillo Burton BP Systolic 2018-11-01 16:22:00 130 mm[Hg] Step hen F Micheal BP Diastolic 2018-11-01 16:22:00 73 mm[Hg] Akira phen F Micheal Weight Measured 2018-11-01 16:22:00 121.80 pounds Rogerio Carrillo Burton Height Measured 2018-11-01 16:22:00 68.00 inches Rogerio Carrillo Burton Body Temperature 2018-11-01 16:22:00 98.40 degrees Rogerio Carrillo Burton Heart Rate 2018-11-01 16:22:00 87.00 /min Myra en F Micheal Respiratory Rate 2018-11-01 16:22:00 16.00 /min Rogerio F Micheal BP Systolic 2018-09-19 14:46:00 113 mm[Hg] Step hen F Micheal BP Diastolic 2018-09-19 14:46:00 57 mm[Hg] Akira phen F Micheal Weight Measured 2018-09-19 14:46:00 125.80 pounds Rogerio F Micheal Height Measured 2018-09-19 14:46:00 68.00 inches Rogerio F Micheal Body Temperature 2018-09-19 14:46:00 98.10 degrees Rogerio F Micheal Heart Rate 2018-09-19 14:46:00 68.00 /min Myra en F Micheal Respiratory Rate 2018-09-19 14:46:00 Rogerio F Micheal BP Systolic 2018-02-06 10:21:00 121 mm[Hg] Step hen F Micheal BP Diastolic 2018-02-06 10:21:00 77 mm[Hg] Akira phen F Micheal Weight Measured 2018-02-06 10:21:00 122.80 pounds Rogerio F Micheal Height Measured 2018-02-06 10:21:00 68.00 inches Rogerio F Micheal Body Temperature 2018-02-06 10:21:00 98.20 degrees Rogerio F Micheal Heart Rate 2018-02-06 10:21:00 53.00 /min Myra en F Micheal Respiratory Rate 2018-02-06 10:21:00 17.00 /min Rogerio F Micheal BP Systolic 2017-10-15 11:25:00 111 mm[Hg] Step hen F Micheal BP Diastolic 2017-10-15 11:25:00 75 mm[Hg] Akira phen F Micheal Weight Measured 2017-10-15 11:25:00 124.00 pounds Rogerio F Micheal Height Measured 2017-10-15 11:25:00 68.00 inches Rogerio F Micheal Body Temperature 2017-10-15 11:25:00 98.20 degrees Rogerio F Micheal Heart Rate 2017-10-15 11:25:00 69.00 /min Myra en F Micheal Respiratory Rate 2017-10-15 11:25:00 Rogerio F Micheal BP Systolic 2017-09-03 15:32:00 113 mm[Hg] Step hen F Micheal BP Diastolic 2017-09-03 15:32:00 59 mm[Hg] Akira phen F Micheal Weight Measured 2017-09-03 15:32:00 126.80 pounds Orgerio F Micheal Height Measured 2017-09-03 15:32:00 67.00 inches Rogerio F Micheal Body Temperature 2017-09-03 15:32:00 98.50 degrees Rogerio F Micheal Heart Rate 2017-09-03 15:32:00 64.00 /min Myra en F Micheal Respiratory Rate 2017-09-03 15:32:00 Rogerio F Micheal BP Systolic 2017-02-27 11:30:00 110 mm[Hg] Step hen F Micheal BP Diastolic 2017-02-27 11:30:00 72 mm[Hg] Akira phen F Micheal Weight Measured 2017-02-27 11:30:00 123.00 pounds Rogerio F Micheal Height Measured 2017-02-27 11:30:00 67.00 inches Rogerio F Micheal Body Temperature 2017-02-27 11:30:00 98.20 degrees Rogerio F Micheal Heart Rate 2017-02-27 11:30:00 55.00 /min Myra en F Micheal Respiratory Rate 2017-02-27 11:30:00 18.00 /min Rogerio F Mihceal BP Systolic 2016-12-20 09:58:00 108 mm[Hg] Step hen F Micheal BP Diastolic 2016-12-20 09:58:00 72 mm[Hg] Akira phen F Micheal Weight Measured 2016-12-20 09:58:00 118.60 pounds Rogerio F Micheal Height Measured 2016-12-20 09:58:00 67.00 inches Rogerio F Micheal Body Temperature 2016-12-20 09:58:00 98.40 degrees Rogerio F Micheal Heart Rate 2016-12-20 09:58:00 71.00 /min Myra en F Micheal Respiratory Rate 2016-12-20 09:58:00 16.00 /min Rogerio F Micheal BP Systolic 2016-10-05 15:05:00 112 mm[Hg] Step hen F Micheal BP Diastolic 2016-10-05 15:05:00 73 mm[Hg] Akira phen F Micheal Weight Measured 2016-10-05 15:05:00 121.20 pounds Rogerio F Micheal Height Measured 2016-10-05 15:05:00 67.00 inches Rogerio F Micheal Body Temperature 2016-10-05 15:05:00 98.20 degrees Rogerio F Micheal Heart Rate 2016-10-05 15:05:00 62.00 /min Myra en F Micheal Respiratory Rate 2016-10-05 15:05:00 16.00 /min Rogerio F Micheal Encounters Start Date/Time End Date/Time Encounter Type Admission Type Attending Clinicians Care Facility Care Department Encounter ID Source 2025-03-25 08:48:18 2025-03-25 08:48:18 Outpatient [facility] [id number] Rogerio Burton 2025-03-25 00:00:00 2025-03-25 00:00:00 Outpatient Visit [facility] [id number] Rogerio Burton 2024-02-26 09:22:00 2024-02-26 23:59:[address] Young [facility] [id number] [facility] 2017-05-01 16:01:18 2017-05-01 18:57:00 Emergency X [facility] ERT [id number] [facility] Results Test Description Test Time Test Comments Results Result Co mments Source Rogerio BurtonHIV AB/AG COMBO RFLX [id number] 00:00:00* Test Item Value Reference Range Interpretation Comme nts HIV 1/2 4TH GEN, RFLX CONF ( test code = 3514) NON-REACTIVE Rogerio [id number] 00:00:00* Test Item Value Reference Range Interpretation Comme nts RPR RESULT (test code = 3501) NON-REACTIVE RPR TITER (test code = 3500) NOT INDIC. TITER Rogerio BurtonCOMPREHENSIVE METABOLIC [id number] 00:00:00* Test Item Value Reference Range Interpretation Comme nts GLUCOSE (test code = 2217) 99 MG/DL BUN (test code = 2208) 12 MG/DL CREATININE (test code = 2214) 0.96 MG/DL eGFR AMER. (test cod e = 47362) 133 ML/MIN/1.73 eGFR NON- AMER. (test code = 61941) 115 ML/MIN/1.73 CALC BUN/CREAT (test code = 2235) 13 RATIO SODIUM (test code = 2231) 142 MEQ/L POTASSIUM (test code = 2228) 4.0 MEQ/L CHLORIDE (test code = 2215) 100 MEQ/L CARBON DIOXIDE (test code = 2206) 27 MEQ/L CALCIUM (test code = 2209) 9.7 MG/DL PROTEIN, TOTAL (test code = 2229) 7.2 G/DL ALBUMIN (test code = 2201) 4.9 G/DL CALC GLOBULIN (test code = 2240) 2.3 G/DL CALC A/G RATIO (test code = 2234) 2.1 RATIO BILIRUBIN, TOTAL (test code = 2207) 0.6 MG/DL ALKALINE PHOSPHATASE (test code = 2204) 121 U/L AST (test code = 2218) 19 U/L ALT (test code = 2219) 12 U/L Rogerio BurtonLIPID [id number] 00:00:00* Test Item Value Reference Range Interpretation Comme nts CHOLESTEROL (test code = 2210) 161 MG/DL TRIGLYCERIDES (test code = 2232) 33 MG/DL HDL CHOLESTEROL (test code = 2220) 82 MG/DL CALC LDL CHOL (test code = 2237) 72 MG/DL RISK RATIO LDL/HDL (test cod e = 2238) 0.88 RATIO Rogerio BurtonGC AND CHLAMYDIA, AMPLIFIED, [id number] 00:00:00* Test Item Value Reference Range Interpretation Comme nts GONORRHEA, TMA (test code = 19605) NEGATIVE CHLAMYDIA, TMA (test code = 97772) NEGATIVE Rogerio Burton Notes Date/Time Note Provider Source Rogerio Burton [facility]
[2025-07-04] MEDS ORDERED: IBUPROFEN 400 MG TAB ONE (17:09)
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
[2025-07-04] MEDS ORDERED: HYDROCODONE/APAP 5/325 MG TAB ONE (18:55)
--- NOTE | 2025-07-04 18:55 | RAD REPORT ---
Exam:Hand Right 3 View HISTORY: Right hand pain FINDINGS: Old fracture fifth metacarpal. No acute fracture or dislocation seen
[2025-07-05 02:17] VITALS: TEMP 98.2
[2025-07-05 02:18] VITALS: BP 133/78; O2SAT 99
== END 2025-07-04 19:11 | disposition home or self-care (01) ==
LOC: ER 17:00
DX: S00.03XA Contusion of scalp, initial encounter (principal); S60.221A Contusion of right hand, initial encounter; Y04.8XXA Assault by other bodily force, initial encounter
CPT/HCPCS: 70450; 99284